=== PATIENT | male | born 1950 | race Caucasian/White ===

== ENCOUNTER → 2017-08-06 | Emergency (ER) | payer MEDICARE, OTHER ==
[~2017-08-06] VITALS: Ht 177.8 cm; Wt 90.7 kg
[~2017-08-06] MED LIST: ALFUZOSIN HCL10 MG PO; AMLODIPINE BESYL5 MG PO; CARVEDILOL6.25 MG PO; LEVETIRACETAM1000 MG PO; LINZESS290 MCG PO; LISINOPRIL20 MG PO; MIRALAX17 GM PO; ONDANSETRON HCL4 MG PO; PROMETHEGAN50 MG PR; READY TO USE E133 ML PR; RENVELA800 MG PO; TORSEMIDE100 MG PO; VERAPAMIL ER120 M1 PO
--- OUTSIDE RECORDS SUMMARY | ~2017-08-06 | XMS | Encounter Summary ---
Demographics + + + | Address | [address] | | | [place] [address] | + + + | Home Phone | | + + + | Preferred Language | Unknown | + + + | Marital Status | Single | + + + | Hinduism Affiliation | 1027 | + + + | Race | Unknown | + + + | Ethnic Group | Unknown | + + + Author + + + | Author | [facility] | + + + | Organization | [facility] | + + + | Address | Unknown | + + + | Phone | Unavailable | + + + Support + + +---------+ + | Name | Relationship | Address | Phone | + + +---------+ + | Bharti Moses | ECON | Unknown | | + + +---------+ + Care Team Providers + +------+ + | Care Life Assurance Representative Name | Role | Phone | + [...] + + | 05/29/ | Documentati | [facility] | Aayush Burr MD | Other (April | | 2017 | on Only | Nephrology [address] | [address] | [facility] | | | [facility] | [address] [place], [place] | Rounding Dialysis | | | | [place], [place] | [address] | Note) | | | | [address] | | | | | | [phone] | | | +--------+ + + + [...]
--- OUTSIDE RECORDS SUMMARY | ~2017-08-06 | XMS | Encounter Summary ---
Demographics + + + | Address | [address] | | | [place] [address] | + + + | Home Phone | | + + + | Preferred Language | Unknown | + + + | Marital Status | Single | + + + | Quaker Affiliation | 1027 | + + + | Race | Unknown | + + + | Ethnic Group | Unknown | + + + Author + + + | Author | [facility] | + + + | Organization | [facility] | + + + | Address | Unknown | + + + | Phone | Unavailable | + + + Support + + +---------+ + | Name | Relationship | Address | Phone | + + +---------+ + | Bharti Moses | ECON | Unknown | | + + +---------+ + Care Team Providers + +------+ + | Care Engineer Gas Pumping Station Name | Role | Phone | + +------+ + | Wilber Mcgee DO | PCP | | + +------+ + Reason for Visit +--------+ + | Reason | Comments | +--------+ + | Other | May 2017-[facility] Provider Rounding Dialysis Note | +--------+ + Encounter Details +--------+ + + + + | Date | Type | Department | Care Team | Description | +--------+ + + + + | 06/28/ | Documentati | [facility] | Aayush Burr MD | Other (May | | 2017 | on Only | Nephrology [address] | [address] | 2018-[facility] Provider | | | | [facility] | [address] [place], [place] | Rounding Dialysis | | | | [place] | [address] | Note) | | | | [address] | | | | | | [phone] | | | +--------+ + + + [...]
--- OUTSIDE RECORDS SUMMARY | ~2017-08-06 | XMS | Encounter Summary ---
Demographics + + + | Address | [address] | | | [place] [address] | + + + | Home Phone | | + + + | Preferred Language | Unknown | + + + | Marital Status | Single | + + + | Yarsanism Affiliation | 1027 | + + + | Race | Unknown | + + + | Ethnic Group | Unknown | + + + Author + + + | Author | [facility] | + + + | Organization | [facility] | + + + | Address | Unknown | + + + | Phone | Unavailable | + + + Support + + +---------+ + | Name | Relationship | Address | Phone | + + +---------+ + | Bharti Moses | ECON | Unknown | | + + +---------+ + Care Team Providers + +------+ + | Care Snow Fence Erector Name | Role | Phone | + [...] + + | 06/28/ | Documentati | [facility] | Aayush Burr MD | Other (May | | 2017 | on Only | Nephrology [address] | [address] | 2018-[facility] Provider | | | | [facility] | [address] [place], [place] | Rounding Dialysis | | | | [place], [place] | [address] | Note) | | | | [address] | | | | | | [phone] | | | +--------+ + + + [...]
--- OUTSIDE RECORDS SUMMARY | ~2017-08-06 | XMS | Clinical Summary ---
Demographics + + + | Address | [address] | | | [place] [address] | + + + | Home Phone | | + + + | Preferred Language | Unknown | + + + | Marital Status | Single | + + + | Adventism Affiliation | NRP | + + + [...] | + + + + + | Bhatri Moses | ECON | [address] | | | | | [place] [address] | | + + + + + Care Team Providers + +------+ + | Care Frog Catcher Name | Role | Phone | + +------+ + | Escobar Cohen MD | PP | | + +------+ + Source Comments SUBHASH is fully live on both [facility] Ambulatory and [facility] InPatient.[facility] Allergies No Known Allergies Current Medications + + +--------+---------+------+------+-------+ | Prescription | Sig. | Disp. | Refills | Star | End | Statu | | | | | | t | Date | s | | | | | | Date | | | + + +--------+---------+------+------+-------+ | acetaminophen 325 | Take 1-2 tablets by | 30 | 0 | 02/1 | | Activ | | mg oral tablet | mouth every six | tablet | | 1/20 | | e | | | hours as needed. | | | 15 | | | + + +--------+---------+------+------+-------+ | levETIRAcetam 750 | Take 1 tablet by | 120 | 5 | 02/ | | Activ | | mg oral tablet | mouth two times | tablet | | 20 | | e | | | daily. | | | 15 | | | + + +--------+---------+------+------+-------+ | alfuzosin SR 10 mg | Take 10 mg by mouth | | | | | Activ | | oral tablet | once daily. Take | | | | | e | | extended release 24 | following a meal at | | | | | | | hr | the same time each | | | | | | | | day. | | | | | | + + +--------+---------+------+------+-------+ | amLODIPine 10 mg | Take 10 mg by mouth | | | | | Activ | | oral tablet | once daily. | | | | | e | + + +--------+---------+------+------+-------+ | mupirocin 2 % | Instill into each | | | | | Activ | | nasal ointment | nostril two times | | | | | e | | | daily. Apply 1/2 | | | | | | | | tube into one | | | | | | | | nostril and the | | | | | | | | other half into the | | | | | | | | other nostril. Use | | | | | | | | for 5 days. | | | | | | + + +--------+---------+------+------+-------+ | bisacodyl | Insert 10 mg | | | | | Activ | | (BISCOLAX) 10 mg | rectally once daily | | | | | e | | rectal suppository | as needed. | | | | | | + + +--------+---------+------+------+-------+ | Calcium Carbonate | Take 3,000 mg by | | | | | Activ | | 600 mg (1,500 mg) | mouth once daily. | | | | | e | | oral tablet | | | | | | | + + +--------+---------+------+------+-------+ | carvedilol 3.125 | Take 3.125 mg by | | | | | Activ | | mg oral tablet | mouth two times | | | | | e | | | daily. Administer | | | | | | | | with food. | | | | | | + + +--------+---------+------+------+-------+ | lisinopril 20 mg | Take 20 mg by mouth | | | | | Activ | | oral tablet | once daily. | | | | | e | + + +--------+---------+------+------+-------+ | sevelamer | Take by mouth three | | | | | Activ | | carbonate (RENVELA) | times daily with | | | | | e | | 800 mg oral tablet | meals. | | | | | | + + +--------+---------+------+------+-------+ | torsemide 100 mg | Take 50 mg by mouth | | | | | Activ | | oral tablet | once daily. | | | | | e | + + +--------+---------+------+------+-------+ | cholecalciferol, | Take 5,000 Units by | | | | | Activ | | Vitamin D3, 1,000 | mouth once daily. | | | | | e | | unit oral tablet | | | | | | | + + +--------+---------+------+------+-------+ | ondansetron 4 mg | Take 4 mg by mouth | | | | | Activ | | oral tablet | every six hours as | | | | | e | | | needed. | | | | | | + + +--------+---------+------+------+-------+ | epoetin niharika | Inject 10,000 Units | | | | | Activ | | (EPOGEN) 10,000 | under the skin | | | | | e | | unit/mL injection | (SUBC) every seven | | | | | | | solution | days. | | | | | | + + +--------+---------+------+------+-------+ Active Problems + + + | Problem | Noted Date | + + + | Meningioma (HCC) | 02/22/2013 | + + + | Gait instability | 02/10/2013 | + + + | Urinary incontinence | 02/10/2013 | + + + | Hydrocephalus | 02/10/2013 | + + + | Alcohol abuse | 02/10/2013 | + + + | History of fever | 02/10/2013 | + + + Social History + +-------+ +--------+------+ | Tobacco Use | Types | Packs/Day | Years | Date | | | | | Used | | + +-------+ +--------+------+ | Never Assessed | | | | | + +-------+ +--------+------+ + + + | Sex Assigned at | Date Recorded | | | | + + + | Not on file | | + + + Last Filed Vital Signs + + + + | Vital Sign | Reading | Time Taken | + + + + | Blood Pressure | 157/93 | 01/21/2015 1:20 PM PDT | + + + + | Pulse | 72 | 01/21/2015 1:20 PM PDT | + + + + | Temperature | 36.8 C (98.3 F) | 01/21/2015 1:20 PM PDT | + + + + | Respiratory Rate | 20 | 06/04/2014 7:24 PM PST | + + + + | Oxygen Saturation | 98% | 01/21/2015 1:20 PM PDT | + + + + | Inhaled Oxygen | - | - | | Concentration | | | + + + + | Weight | 83 kg (183 lb) | 01/21/2015 1:20 PM PDT | + + + + | Height | 167.6 cm (5' 6") | 05/31/2014 2:00 AM PST | + + + + | Body Mass Index | 29.54 | 01/21/2015 1:20 PM PDT | + + + + Plan of Treatment + + + + + | Health Maintenance | Due Date | Last Done | Comments | + + + + + | INFLUENZA VACCINE | | | | | (FLU SHOT) | 8 | | | + + + + + Results Not on filefrom Last 3 Months
--- OUTSIDE RECORDS SUMMARY | ~2017-08-06 | XMS | Encounter Summary ---
Demographics + + + | Address | [address] | | | [place] [address] | + + + | Home Phone | | + + + | Preferred Language | Unknown | + + + | Marital Status | Single | + + + | Yarsani Affiliation | 1027 | + + + | Race | Unknown | + + + | Ethnic Group | Unknown | + + + Author + + + | Author | [facility] | + + + | Organization | [facility] | + + + | Address | Unknown | + + + | Phone | Unavailable | + + + Support + + +---------+ + | Name | Relationship | Address | Phone | + + +---------+ + | Bharti Moses | ECON | Unknown | | + + +---------+ + Care Team Providers + +------+ + | Care Lotus Notes Administrator Name | Role | Phone | + [...] + + | 05/29/ | Documentati | [facility] | Aayush Burr MD | Other (April | | 2017 | on Only | Nephrology [address] | [address] | [facility] | | | [facility] | [address] [place], [place] | Rounding Dialysis | | | | [place], [place] | [address] | Note) | | | | [address] | | | | | | [phone] | | | +--------+ + + + [...]
--- OUTSIDE RECORDS SUMMARY | ~2017-08-06 | XMS | Clinical Summary ---
Demographics + + + | Address | [address] | | | [place] [address] | + + + | Home Phone | | + + + | Preferred Language | Unknown | + + + | Marital Status | Single | + + + | Restorationist Affiliation | NRP | + + + [...] | | | | | [place] [address] | | + + + + + Care Team Providers + +------+ + | Care Irrigation Installation Specialist Name | Role | Phone | + +------+ + | Escobar Cohen MD | PP | | + +------+ + Source Comments SUBHASH is fully live on both [facility] Ambulatory and [facility] InPatient.[facility] Allergies No Known Allergies Current Medications + [...]
--- OUTSIDE RECORDS SUMMARY | ~2017-08-06 | XMS | Clinical Summary ---
Demographics + + + | Address | [address] | | | [place] [address] | + + + | Home Phone | | + + + | Preferred Language | Unknown | + + + | Marital Status | Single | + + + | Advent Affiliation | 1027 | + + + | Race | Unknown | + + + | Ethnic Group | Unknown | + + + Author + + + | Author | [facility] | + + + | Organization | [facility] | + + + | Address | Unknown | + + + | Phone | Unavailable | + + + Support + + +---------+ + | Name | Relationship | Address | Phone | + + +---------+ + | Bharti Moses | ECON | Unknown | | + + +---------+ + Care Team Providers + +------+ + | Care Vp Of Digital Marketing Name | Role | Phone | + [...] 08/1 | | Activ | | (PROCRIT) [id number] | skin every 7 days. | | [...] | | | | Activ | | 02104 units CAPS | mouth daily. | | [...] + + + + + | Vaccine: Zoster (#1) | | | | | | 0 | | | + + + + [...] Right: | COVIDIEN | | 09/07/ | [id number] | | : Qty: 1 on 01/19/2015 by | er | Chest | | | 2020 | [id number] | | Joaquim James MD | | | | | | / | | | | | | | | /[id number] | | | | | | | | [address] | + +--------+--------+ +--------+--------+--------+ Results Not on [...] RE | | | | [place] [address] | | | IP-OP | | | | | + +--------+ +------+-------+ + | MEDICAID | MEDICA | xxxxxxxx | | | [address] | | | ID | | | | [place] | | | [place] | | | | [address] | + +--------+ +------+-------+ + + +--------+ +--------+ + + | Guarantor Name | Accoun | Relation to | Date | Phone | Billing Address | | | t Type | Patient | of | | | | | | | | | | + +--------+ +--------+ + + | MEERA VEGA | Person | Self [birth year] Home: | [address] | | | al/Fam | | 1951 | [phone] | [place] | | | [place] | | | [phone] | + +--------+ +--------+ + +
--- OUTSIDE RECORDS SUMMARY | ~2017-08-06 | XMS | Clinical Summary ---
Demographics + + + | Address | [address] | | | [place] [address] | + + + | Home Phone | | + + + | Preferred Language | Unknown | + + + | Marital Status | Single | + + + | Amish Affiliation | 1027 | + + + | Race | Unknown | + + + | Ethnic Group | Unknown | + + + Author + + + | Author | [facility] | + + + | Organization | [facility] | + + + | Address | Unknown | + + + | Phone | Unavailable | + + + Support + + +---------+ + | Name | Relationship | Address | Phone | + + +---------+ + | Bharti Moses | ECON | Unknown | | + + +---------+ + Care Team Providers + +------+ + | Care Database Software Technician Name | Role | Phone | [...] 08/1 | | Activ | | (PROCRIT) [id number] | skin every 7 days. | | [...] | | | | Activ | | 74427 units CAPS | mouth daily. | | [...] Right: | COVIDIEN | | 09/07/ | [id number] | | : Qty: 1 on 01/19/2015 by | er | Chest | | | 2020 | [id number] | | Joaquim James MD | | | | | | / | | | | | | | | /[id number] | | | | | | | | [address] | + +--------+--------+ +--------+--------+--------+ Results Not on [...] RE | | | | [place] [address] | | | IP-OP | | | | | + +--------+ +------+-------+ + | MEDICAID | MEDICA | xxxxxxxx | | | [address] | | | ID | | | | [place] | | | [place] | | | | [address] | + +--------+ +------+-------+ + + +--------+ +--------+ + + | Guarantor Name | Accoun | Relation to | Date | Phone | Billing Address | | | t Type | Patient | of | | | | | | | | | | + +--------+ +--------+ + + | MEERA VEGA | Person | Self | [birth year] | Home: | [address] | | | al/Fam | | 1951 | [phone] | [place] | | | [place] | | | [phone] | + +--------+ +--------+ + +
--- NOTE | 2017-08-08 17:13 | EKG ---
[facility] [address] [place] [address] Signed Normal sinus rhythm Possible Left atrial enlargement Septal infarct , age undetermined Abnormal ECG No previous ECGs available Confirmed by JASMINE AMEZQUITA MD ([id number]) on 08/08/2017 5:12:52 PM Electronically Signed By: JASMINE AMEZQUITA MD 08/08/17 1713 PATIENT NAME: MEERA VIZCAINO Electrocardiogram DATE OF : 48 PHYSICIAN: JASMINE AMEZQUITA MD REPORT #: [id number] REPORT IS CONFIDENTIAL AND NOT TO BE RELEASED WITHOUT AUTHORIZATION
== END ==
LOC: ED 21:16
PROC: BT40ZZZ Ultrasonography of Bladder (ICD-10-PCS; principal; 2017-08-06)
DX: R41.82 Altered mental status, unspecified (principal); G91.9 Hydrocephalus, unspecified; E87.5 Hyperkalemia; Z99.2 Dependence on renal dialysis; I12.0 Hypertensive chronic kidney disease with stage 5 chronic kidney disease or end stage renal disease; N18.6 End stage renal disease; Z79.899 Other long term (current) drug therapy
CPT/HCPCS: 51798; 70450; 71045; 80053; 84484; 85025; 85610; 85730; 93005; 93010; 96374; 99285; G0480; J2060

== ENCOUNTER 2017-08-26 15:17 | Emergency (ER) | payer MEDICARE, OTHER ==
[~2017-08-26] VITALS: Ht 177.8 cm; Wt 90.7 kg
--- OUTSIDE RECORDS SUMMARY | ~2017-08-26 | XMS | Encounter Summary ---
Demographics + + + | Address | [address] | | | [place] [address] | + + + | Home Phone | | + + + | Preferred Language | Unknown | + + + | Marital Status | Single | + + + | Pentecostalism Affiliation | 1027 | + + + | Race | Unknown | + + + | Ethnic Group | Unknown | + + + Author + + + | Author | [facility] | + + + | Organization | [facility] | + + + | Address | Unknown | + + + | Phone | Unavailable | + + + Support + + +---------+ + | Name | Relationship | Address | Phone | + + +---------+ + | Bharti Moses | ECON | Unknown | | + + +---------+ + Care Team Providers + +------+ + | Care Art Model Name | Role | Phone | + +------+ + | Wilber Dodd DO | PCP | | + +------+ + Reason for Visit +--------+ + | Reason | Comments | +--------+ + | Other | [facility]U [facility] | +--------+ + Encounter Details +--------+ + + + + | Date | Type | Department | Care Team | Description | +--------+ + + + + | 07/25/ | Documentati | [facility] | Warren Matos MD | Other (DR. PABLO | | 2018 | on Only | Hematology and | [address] | [place]ODD ) | | | | Oncology [address] | [place] | | | | | [place] | [address] | | | | | [place] | | | | | | [address] | | | | | | [phone] | | | +--------+ + + + + Social History + +-------+ +--------+------+ | Tobacco Use | Types | Packs/Day | Years | Date | | | | | Used | | + +-------+ +--------+------+ | Never Smoker | | | | | + +-------+ +--------+------+ + + +---------+ + | Alcohol Use | Drinks/We | oz/Week | Comments | | | ek | | | + + +---------+ + | No | 42 Cans | 46.2 | Stop drinking 2 years ago | | | of beer | | | | | 35 Shots | | | | | of | | | | | liquor 0 | | | | | Standard | | | | | drinks | | | | | or | | | | | equivalen | | | | | t | | | + + +---------+ + + + + | Sex Assigned at | Date Recorded | | | | + + + | Not on file | | + + + as of this encounter Plan of Treatment Not on fileas of this encounter Visit Diagnoses Not on filein this encounter"
--- OUTSIDE RECORDS SUMMARY | ~2017-08-26 | XMS | Encounter Summary ---
Demographics + + + | Address | [address] | | | [place] [address] | + + + | Home Phone | | + + + | Preferred Language | Unknown | + + + | Marital Status | Single | + + + | Congregational Affiliation | 1027 | + + + | Race | Unknown | + + + | Ethnic Group | Unknown | + + + Author + + + | Author | [facility] | + + + | Organization | [facility] | + + + | Address | Unknown | + + + | Phone | Unavailable | + + + Support + + +---------+ + | Name | Relationship | Address | Phone | + + +---------+ + | Bharti Moses | ECON | Unknown | | + + +---------+ + Care Team Providers + +------+ + | Care Housekeeping/Laundry Name | Role | Phone | + +------+ + | Wilber Mcgee DO | PCP | | + +------+ + Reason for Visit +--------+ + | Reason | Comments | +--------+ + | Other | April 2017-[facility] Provider Rounding Dialysis Note | +--------+ + Encounter Details +--------+ + + + + | Date | Type | Department | Care Team | Description | +--------+ + + + + | 05/29/ | Documentati | [facility] | Aayush Burr MD | Other (April | | 2017 | on Only | Nephrology [address] | [facility] | | | [facility] | [address] [place], [place] | Rounding Dialysis | | | | [place], [place] | [address] | Note) | | | | [address] | | | | | | [phone] | | | +--------+ + + + [...]
--- OUTSIDE RECORDS SUMMARY | ~2017-08-26 | XMS | Encounter Summary ---
Demographics + + + | Address | [address] | | | [place] [address] | + + + | Home Phone | | + + + | Preferred Language | Unknown | + + + | Marital Status | Single | + + + | Church Affiliation | 1027 | + + + | Race | Unknown | + + + | Ethnic Group | Unknown | + + + Author + + + | Author | [facility] | + + + | Organization | [facility] | + + + | Address | Unknown | + + + | Phone | Unavailable | + + + Support + + +---------+ + | Name | Relationship | Address | Phone | + + +---------+ + | Bharti Moses | ECON | Unknown | | + + +---------+ + Care Team Providers + +------+ + | Care Passport Support Manager Name | Role | Phone | + +------+ + | Wilber Mcgee DO | PCP | | + +------+ + Reason for Visit +--------+ + | Reason | Comments | +--------+ + | Other | July 2017-Mary Jo Hernández Rounding Dialysis Note | +--------+ + Encounter Details +--------+ + + + + | Date | Type | Department | Care Team | Description | +--------+ + + + + | 08/22/ | Documentati | [facility] | Aayush Burr MD | Other (July | | 2017 | on Only | Nephrology [address] | [address] | [facility] [facility] | | | | [place] [facility] | [address] [place], [place] | Rounding Dialysis | | | | [place], [place] | [address] | Note) | | | | [address] | | | | | | [phone] | | | +--------+ + + + [...]
--- OUTSIDE RECORDS SUMMARY | ~2017-08-26 | XMS | Clinical Summary ---
Demographics + + + | Address | [address] | | | [place] [address] | + + + | Home Phone | | + + + | Preferred Language | Unknown | + + + | Marital Status | Single | + + + | Confucianist Affiliation | NRP | + + + | Race | White | + + + | Ethnic Group | Not or | + + + Author + + + | Author | [facility] | + + + | Organization | [facility] | + + + | Address | Unknown | + + + | Phone | Unavailable | + + + Support + + + + + | Name | Relationship | Address | Phone | + + + + + | Bharti Moses | ECON | [address] | | | | | [place] [address] | | + + + + + | Florentin Vega | ECON | Unknown | | + + + + + Care Team Providers + +------+ + | Care Transport Tank Technician Name | Role | Phone | + +------+ + | Wilber Mcgee DO | PP | | + +------+ + Source Comments SUBHASH is fully live on both [facility] Ambulatory and [facility] InPatient.[facility] Allergies No Known Allergies Current Medications + + +---------+---------+------+------+-------+ | Prescription | Sig. | Disp. | Refills | Star | End | Statu | | | | | | t | Date | s | | | | | | Date | | | + + +---------+---------+------+------+-------+ | bisacodyl | Unwrap and insert 10 | | | | | Activ | | (BISCOLAX) 10 mg | mg rectally once | | | | | e | | rectal suppository | daily as needed (2nd | | | | | | | | line for | | | | | | | | constipation). | | | | | | + + +---------+---------+------+------+-------+ | lisinopril 20 mg | Take 20 mg by mouth | | | | | Activ | | oral tablet | once daily. | | | | | e | + + +---------+---------+------+------+-------+ | sevelamer | Take 2,400 mg by | | | | | Activ | | carbonate (RENVELA) | mouth three times | | | | | e | | 800 mg oral tablet | daily with meals. | | | | | | | | Hold if not eating. | | | | | | + + +---------+---------+------+------+-------+ | Cholecalciferol | Take 5,000 Units by | | | | | Activ | | (Vitamin D3) 5,000 | mouth once daily. | | | | | e | | unit oral tablet | | | | | | | + + +---------+---------+------+------+-------+ | levETIRAcetam | Take 1,000 mg by | | | 02/2 | | Activ | | 1,000 mg oral tablet | mouth two times | | | 12/11 | | e | | | daily. | | | 18 | | | + + +---------+---------+------+------+-------+ | carvedilol 6.25 mg | Take 6.25 mg by | | | 03/2 | | Activ | | oral tablet | mouth two times | | | 12/11 | | e | | | daily. Hold for | | | 18 | | | | | pulse < 50 bpm. | | | | | | + + +---------+---------+------+------+-------+ | acetaminophen 325 | Take 650 mg by mouth | | | | | Activ | | mg oral tablet | every four hours as | | | | | e | | | needed for moderate | | | | | | | | pain. | | | | | | + + +---------+---------+------+------+-------+ | sevelamer HCl 800 | Take 800 mg by mouth | | | | | Activ | | mg oral tablet | once daily at | | | | | e | | | bedtime. Give with | | | | | | | | evening snack. Hold | | | | | | | | if not eating. | | | | | | + + +---------+---------+------+------+-------+ | polyethylene | Mix 1 packet and | | | | | Activ | | glycol 17 gram oral | take orally once | | | | | e | | powder in packet | daily as needed (1st | | | | | | | | line for | | | | | | | | constipation). | | | | | | + + +---------+---------+------+------+-------+ | mineral oil (FLEET | Insert 133 mL | | | | | Activ | | MINERAL OIL) rectal | rectally once daily | | | | | e | | enema | as needed (3rd line | | | | | | | | for constipation). | | | | | | + + +---------+---------+------+------+-------+ | senna-docusate | Take 2 tablets by | | | | | Activ | | 8.6-50 mg oral | mouth two times | | | | | e | | tablet | daily. | | | | | | + + +---------+---------+------+------+-------+ | calcium carbonate | Take 2 tablets by | 30 | 1 | 04/2 | | Activ | | 260 mg elemental | mouth once daily. | tablet | | 0/20 | | e | | (648 mg total salt) | | | | 18 | | | | oral tablet | | | | | | | + + +---------+---------+------+------+-------+ | thiamine 100 mg | Take 1 tablet by | 30 | 1 | 04/2 | | Activ | | oral tablet | mouth once daily. | tablet | | 0/20 | | e | | | | | | 18 | | | + + +---------+---------+------+------+-------+ | LINZESS 290 mcg | Take 290 mcg by | 30 | 0 | 04/1 | | Activ | | oral capsule | mouth once daily. | capsule | | 9/20 | | e | | | | | | 18 | | | + + +---------+---------+------+------+-------+ | amLODIPine 10 mg | Take 1 tablet by | 30 | 2 | 07/24 | | Activ | | oral tablet | mouth once daily. | tablet | | | | e | | | | | | 18 | | | + + +---------+---------+------+------+-------+ Active Problems + + + | Problem | Noted Date | + + + | Hypertension | 08/10/2017 | + + + | Epilepsy (HCC) | 08/10/2017 | + + + | MGUS (monoclonal gammopathy of unknown significance) | 08/10/2017 | + + + | Anemia | 08/10/2017 | + + + | Delirium | 08/10/2017 | + + + | Altered mental status | 08/07/2017 | + + + | ESRD (end stage renal disease) (HCC) | 08/07/2017 | + + + | Altered mental status, unspecified altered mental status type | 08/07/2017 | + + + | Meningioma (HCC) | 02/22/2013 | + + + | Gait instability | 02/10/2013 | + + + | Urinary incontinence | 02/10/2013 | + + + | Hydrocephalus | 02/10/2013 | + + + | Alcohol abuse | 02/10/2013 | + + + | History of fever | 02/10/2013 | + + + Resolved Problems + + + + | Problem | Noted | Resolved | | | Date | Date | + + + + | Hypertensive emergency | 08/11/19 | | | | 18 | 8 | + + + + Encounters +--------+ + + + + | Date | Type | Specialty | Care Team | Description | +--------+ + + + + | 08/09/ | Document-Sc | | Unknown | | | 2018 | anned | | | | +--------+ + + + + | 08/09/ | Document-Sc | | Unknown | | | 2018 | anned | | | | +--------+ + + + + | 08/07/ | Hospital | | Tracey Ledesma MD | | | 2018 - | Encounter | | Paulo Trotter, | | | | | | MD Hester, | | | 08/11/ | | | MD Manuela | | | 2017 | | | Leonidas Redd MD | | +--------+ + + + + +---+ + | | Discharge | | | Summaries | | | - Laura, | | | Amirah Ann, | | | - | | | 08/11/2017 | | | 2:09 PM | | | PDT | | | Formatting | | | of this | | | note may be | | | different | | | from the | | | original.Or | | | [facility] | | | & Science | | | [place] | | | Discharge | | | SummaryDisc | | | harging | | | Provider: | | | AMIRAH Ann | | | LAURA, | | | MDDischargi | | | ng | | | Attending | | | Physician: | | | Leonidas | | | Tramaine | | | MDPCP: Wilber | | | Walker, | | | DOAdmission | | | Date: | | | 08/07/2017Di | | | scharge | | | Date: | | | 08/11/17Hosp | | | ital Stay: | | | 4 | | | day(s)Diagn | | | osis:Princi | | | pal | | | Diagnosis:1 | | | . Acute | | | metabolic | | | encephalopa | | | thyAddition | | | al | | | Diagnoses:2 | | | . Right | | | parafalcine | | | | | | meningioma3 | | | . Chronic | | | hydrocephal | | | us4. | | | Seizure | | | disorder5. | | | ESRD6. | | | HTN7. | | | MGUSProcedu | | | res: | | | noneReason | | | for | | | Admission: | | | altered | | | mental | | | statusHospi | | | faizan Course | | | by Problem | | | # Right | | | parafalcine | | | meningioma | | | c/b | | | chronic | | | hydrocephal | | | usPatient | | | presented | | | with | | | altered | | | mental | | | status and | | | vomiting. | | | He had a CT | | | at an | | | outside | | | hospital | | | which was | | | concerning | | | for his | | | known | | | ventriculom | | | egaly and | | | he was sent | | | to [facility] | | | and | | | admitted to | | | | | | neurosurger | | | y service. | | | Repeat | | | brain MRI | | | here showed | | | a stable | | | degree of | | | ventriculom | | | egaly. His | | | blood | | | pressure | | | medications | | | had been | | | held in the | | | setting of | | | vomiting | | | and his BP | | | at OSH was | | | noted to be | | | 234/104, | | | however on | | | arrival was | | | down to | | | 180s/90s. | | | An EEG was | | | obtained on | | | 4/17 which | | | showed | | | slowing of | | | background | | | and | | | triphasic | | | waves | | | suggestive | | | of | | | toxic-metab | | | olic | | | encephalopa | | | thy. | | | Considered | | | multiple | | | potential | | | etiologies | | | for | | | patient's | | | ongoing | | | fluctuating | | | hypoactive | | | delirium, | | | although | | | ultimately | | | no clear | | | precipitant | | | was found | | | and the | | | patient | | | returned to | | | his | | | baseline | | | mental | | | status | | | after 3 | | | days. He | | | had no e/o | | | infection, | | | electrolyte | | | s were wnl | | | with | | | dialysis, | | | MRI was | | | negative | | | for PRES. | | | Thiamine | | | was started | | | | | | empirically | | | given | | | history of | | | heavy EtOH | | | use | | | although | | | patient's | | | facility | | | and life | | | partner | | | indicated | | | he was no | | | longer | | | drinking or | | | using any | | | other | | | substances. | | | Vitamin | | | B12 and TSH | | | were | | | normal. | | | Niacin was | | | pending at | | | time of | | | discharge. | | | - follow | | | up niacin | | | level - | | | continue | | | thiamine po | | | - delirium | | | | | | precautions | | | and | | | avoidance | | | of | | | centrally | | | active | | | medications | | | # Seizure | | | disorderKep | | | pra level | | | initially | | | supratherap | | | eutic at | | | 66, however | | | repeat | | | level was | | | wnl. Home | | | dose was | | | not changed | | | on | | | discharge. | | | - continue | | | Keppra 1 | | | gram BID | | | for seizure | | | | | | prophylaxis | | | # ESRD - | | | on HD MWF# | | | Normocytic | | | anemia, | | | chronicPati | | | ent was | | | dialyzed | | | according | | | to his | | | usual | | | schedule. | | | Nephrology | | | did not | | | feel that | | | uremia was | | | a | | | contributor | | | to his | | | mental | | | status. | | | Anemia was | | | at baseline | | | and above | | | goal for | | | ESRD. - | | | continue HD | | | MWF at | | | [facility] with | | | Dr. Looney | | | Akhum - | | | continue | | | sevelamer | | | # HTN | | | Suspect his | | | initial | | | high BPs | | | were | | | related to | | | missing | | | doses of | | | his | | | medications | | | . Stopped | | | torsemide | | | given that | | | patient is | | | anuric. | | | Stopped | | | verapamil | | | as | | | patient's | | | BPs were | | | well | | | controlled | | | (mostly | | | <140/80) | | | without it. | | | - | | | continued | | | amlodipine | | | 10 mg daily | | | - | | | continued | | | carvedilol | | | 3.125 mg | | | BID - | | | continued | | | lisinopril | | | 20 mg | | | daily # | | | MGUSFollows | | | with | | | hematology, | | | last seen | | | 08/01/16 by | | | Dr. Martinez. | | | Recommend | | | follow-up | | | with Ana | | | Hematology | | | for | | | continued | | | observation | | | . Pertinen | | | t | | | Findings:La | | | bs: Lab | | | Results | | | Component | | | Value Date | | | WBC 6.09 | | | 08/10/2017 | | | HB 10.1 | | | 08/10/2017 | | | HCT 31.0 | | | 08/10/2017 | | | PLT 164 | | | 08/10/2017 | | | MCV 93.7 | | | 08/10/2017 | | | RDW 46.1 | | | 08/10/2017 | | | Recent Labs | | | | | | 08/08/17 | | | 1002 | | | 08/09/17 | | | 0700 | | | 08/10/17 | | | 0706 GLU | | | 92 106* | | | 86 BUN 33* | | | 53* 30* | | | CR 7.50* | | | 10.40* | | | 7.51* ALB | | | 3.3* 2.9* | | | 2.9* CA | | | 9.0 8.7 | | | 9.1 PO4 | | | 4.5 -- | | | 4.3 NA 137 | | | 136 137 | | | CL 99 99 | | | 99 BICARB | | | 30 30 | | | 34* | | | Imaging:MRI | | | brain | | | 08/08/17: | | | | | | IMPRESSION: | | | 1. | | | Unchanged | | | marked | | | enlargement | | | of the | | | lateral and | | | third | | | ventricles | | | compared to | | | head CT of | | | 08/09/17 | | | and brain | | | MRI of | | | 05/31/14 with | | | suggestion | | | of | | | underlying | | | aqueductal | | | stenosis; | | | however, | | | there | | | appears to | | | be a flow | | | void within | | | the | | | cerebral | | | aqueduct | | | suggesting | | | that the | | | aqueduct is | | | not | | | entirely | | | occluded.2. | | | Grossly | | | unchanged | | | appearance | | | of the | | | right | | | parafalcine | | | present | | | meningioma; | | | lack of | | | intravenous | | | contrast | | | and the | | | current | | | exam limits | | | | | | comparison. | | | CXR | | | 18: | | | IMPRESSION: | | | Single | | | frontal | | | view of the | | | abdomen | | | obtained. | | | The tip of | | | the feeding | | | tube is in | | | the | | | gastric | | | body, | | | pointing | | | toward the | | | gastric | | | outlet. | | | Other | | | Studies:Out | | | standing or | | | Pending | | | Labs/Studie | | | s: | | | Consultants | | | | | | (service/at | | | tending | | | name): | | | Discharge | | | Medications | | | : | | | Medication | | | List START | | | taking | | | these | | | medications | | | calcium | | | carbonate | | | 260 mg | | | elemental | | | (648 mg | | | total salt) | | | TabTake 2 | | | tablets by | | | mouth once | | | daily. | | | thiamine | | | 100 mg | | | TabTake 1 | | | tablet by | | | mouth once | | | daily. | | | CHANGE how | | | you take | | | these | | | medications | | | | | | amLODIPine | | | 10 mg | | | TabCommonly | | | known as: | | | | | | NORVASCTake | | | 1 tablet | | | by mouth | | | once | | | daily.What | | | changed: | | | Another | | | medication | | | with the | | | same name | | | was | | | removed. | | | Continue | | | taking this | | | | | | medication, | | | and follow | | | the | | | directions | | | you see | | | here. | | | LINZESS 290 | | | mcg | | | CapGeneric | | | drug: | | | linaclotide | | | Take 290 | | | mcg by | | | mouth once | | | daily.What | | | changed: | | | how much to | | | take | | | CONTINUE | | | taking | | | these | | | medications | | | | | | acetaminoph | | | en 325 mg | | | TabCommonly | | | known as: | | | | | | TYLENOLTake | | | 650 mg by | | | mouth every | | | four hours | | | as needed | | | for | | | moderate | | | pain. | | | BISCOLAX 10 | | | mg | | | SuppGeneric | | | drug: | | | bisacodylUn | | | wrap and | | | insert 10 | | | mg rectally | | | once daily | | | as needed | | | (2nd line | | | for | | | constipatio | | | n). | | | carvedilol | | | 6.25 mg | | | TabCommonly | | | known as: | | | COREGTake | | | 6.25 mg by | | | mouth two | | | times | | | daily. Hold | | | for pulse | | | < 50 bpm. | | | Cholecalcif | | | mary | | | (Vitamin | | | D3) 5,000 | | | unit | | | TabTake | | | 5,000 Units | | | by mouth | | | once daily. | | | FLEET | | | MINERAL OIL | | | | | | EnemGeneric | | | drug: | | | mineral | | | oilInsert | | | 133 mL | | | rectally | | | once daily | | | as needed | | | (3rd line | | | for | | | constipatio | | | n). | | | levETIRAcet | | | am 1,000 mg | | | | | | TabCommonly | | | known as: | | | KEPPRATake | | | 1,000 mg | | | by mouth | | | two times | | | daily. | | | lisinopril | | | 20 mg | | | TabCommonly | | | known as: | | | | | | PRINIVILTak | | | e 20 mg by | | | mouth once | | | daily. | | | polyethylen | | | e glycol 17 | | | gram | | | PwpkCommonl | | | y known as: | | | | | | MIRALAXMix | | | 1 packet | | | and take | | | orally once | | | daily as | | | needed (1st | | | line for | | | constipatio | | | n). RENVELA | | | 800 mg | | | TabGeneric | | | drug: | | | sevelamer | | | carbonateTa | | | ke 2,400 mg | | | by mouth | | | three times | | | daily with | | | meals. | | | Hold if not | | | eating. | | | senna-docus | | | ate 8.6-50 | | | mg | | | TabCommonly | | | known as: | | | SENOKOT | | | STake 2 | | | tablets by | | | mouth two | | | times | | | daily. | | | sevelamer | | | HCl 800 mg | | | TabCommonly | | | known as: | | | | | | RENAGELTake | | | 800 mg by | | | mouth once | | | daily at | | | bedtime. | | | Give with | | | evening | | | snack. Hold | | | if not | | | eating. | | | STOP taking | | | these | | | medications | | | alfuzosin | | | SR 10 mg | | | [id number] | | | y known as: | | | UROXATRAL | | | | | | ondansetron | | | 4 mg | | | TabCommonly | | | known as: | | | ZOFRAN | | | promethazin | | | e 50 mg | | | SuppCommonl | | | y known as: | | | PHENERGAN | | | torsemide | | | 100 mg | | | TabCommonly | | | known as: | | | DEMADEX | | | verapamil | | | SR 12 hr | | | 120 mg | | | TberCommonl | | | y known as: | | | CALAN | | | SR,ISOPTIN | | | SR | | | Rationale | | | for | | | Medication | | | Changes: - | | | thiamine | | | started for | | | empiric | | | treatment | | | of B1 | | | deficiency | | | - unable to | | | confirm | | | that | | | patient was | | | taking | | | verapamil | | | and given | | | unknown | | | indication, | | | this was | | | held - | | | promethazin | | | e and | | | ondansetron | | | stopped to | | | reduce | | | centrally | | | acting meds | | | - | | | alfuzosin | | | and | | | torsemide | | | stopped as | | | patient is | | | anuricAller | | | gies: No | | | Known | | | AllergiesCo | | | de Status: | | | Do Not | | | Resuscitate | | | /Do Not | | | IntubatePOL | | | ST | | | completed: | | | noAdditiona | | | l | | | Instruction | | | s:Condition | | | on | | | Discharge | | | Stable | | | Discharge | | | Follow Up - | | | Facility | | | MD to | | | follow | | | Facility MD | | | to follow | | | patient. | | | Code Status | | | for | | | Facility | | | Status: | | | Treatment | | | Limits per | | | POLST | | | Condition | | | on | | | Discharge | | | Fair Vital | | | Signs Per | | | policy Diet | | | Renal | | | Renal Diet: | | | Sodium 2 | | | gm, | | | Potassium 2 | | | gm, Low | | | Phosphorus- | | | You must | | | follow a | | | special | | | diet | | | because of | | | your kidney | | | condition. | | | This | | | means that | | | you must | | | restrict | | | your intake | | | of foods | | | high in | | | potassium, | | | sodium and | | | phosphorus. | | | You may | | | also need | | | to limit | | | your intake | | | of fluids. | | | Your | | | healthcare | | | provider | | | will | | | provide you | | | with some | | | guidelines | | | to follow. | | | We | | | recommend | | | regular | | | food | | | texture and | | | thin | | | liquids.Act | | | ivity No | | | activity | | | restriction | | | s Activity | | | No activity | | | | | | restriction | | | s. Continue | | | PT, OT as | | | tolerated | | | Who To Call | | | For | | | Problems | | | HOW TO | | | REACH YOUR | | | MEDICINE | | | TEAM WITH | | | QUESTIONS, | | | CONCERNS, | | | OR NEW | | | SYMPTOMS: | | | Thank you | | | for | | | entrusting | | | your care | | | to [facility] | | | Internal | | | Medicine. | | | If you have | | | any | | | problems or | | | concerns | | | before you | | | are able to | | | follow up | | | with your | | | Primary | | | Care | | | Provider, | | | please call | | | [phone] | | | [phone] | | | and ask the | | | dryer operator | | | to page the | | | attending | | | physician, | | | Leonidas | | | Tramaine, | | | MD, who | | | was caring | | | for you at | | | discharge. | | | If that | | | physician | | | is not | | | available, | | | ask the | | | dryer operator to | | | page the | | | physician | | | fundraising consultant for | | | the | | | Medical | | | Teaching | | | Service.Dis | | | charge | | | Destination | | | - | | | Selection | | | Complete | | | Service | | | Request | | | Status | | | Selected | | | Specialties | | | Address | | | Phone | | | Number Fax | | | Number | | | [facility] | | | [facility] | | | Terrace | | | Selected | | | Intermediat | | | e Care | | | Facility | | | [address], | | | [place] | | | [place] [address] | | | [phone] | | | [phone] | | | [phone] | | | 9 Home | | | Care | | | Medical | | | No service | | | has been | | | selected | | | for the | | | patient. | | | Social Care | | | Services | | | No service | | | has been | | | selected | | | for the | | | patient. | | | Follow | | | Up:Future | | | Appointment | | | s | | | Department | | | Dept Phone | | | Center | | | 08/07/2017 | | | 3:01 AM | | | [facility] | | | [phone] | | | [phone] | | | Contact | | | information | | | for other | | | follow-up | | | providers | | | WILBER | | | WALKER, DO | | | In 1 week. | | | Specialty: | | | Family | | | [facility] | | | tact | | | information | | | [address] | | [address] | | | [address] | | | [place] | | | [phone] | | [phone] | | | Contact | | | information | | | for | | | after-disch | | | arge care | | | Discharge | | | Destination | | | [facility] | | | | | | [facility] | | | Terrace . | | | Specialty: | | | | | | Intermediat | | | e Care | | | [facility] | | | tact | | | information | | | [address] | | [address] | | | on [place] | | | [phone] | | [phone] | | | Discharge | | | Physical | | | Exam:BP | | | Readings | | | from Last 1 | | | | | | Encounters: | | | 18 | | | 140/62 | | | Pulse | | | Readings | | | from Last 1 | | | | | | Encounters: | | | 08/11/17 | | | 68 Resp | | | Readings | | | from Last 1 | | | | | | Encounters: | | | 08/11/17 | | | 16 Wt | | | Readings | | | from Last 1 | | | | | | Encounters: | | | 08/10/17 | | | 82.1 kg | | | (181 lb) | | | Temp | | | Readings | | | from Last 1 | | | | | | Encounters: | | | 08/11/17 | | | 36.9 C | | | (98.4 F) | | | Body mass | | | index is | | | 29.23 | | | kg/m .Gene | | | ral: | | | pleasant, | | | alert, | | | oriented | | | d9Aapzd: | | | JVP at 10 | | | cm, | | | RRRLungs: | | | CTABAbd: | | | soft, | | | non-distend | | | ed, | | | non-tenderN | | | euro: CN | | | II-XII | | | intact. | | | PERRL, + | | | BTT, gaze | | | conjugate. | | | Strength | | | equal in | | | upper and | | | lower | | | extremities | | | . High | | | amplitude | | | low | | | frequency | | | action | | | tremor in | | | arms | | | bilaterally | | | when moves | | | | | | antigravity | | | . 2+ upper | | | extremities | | | , 3+ LE and | | | symetric, | | | sustained | | | ankle | | | clonusANDRE | | | W B | | | MD LAURA | +---+ + +--------+ +---+---+---+ | 08/07/ | Procedure | | | | | 2017 | Pass | | | | +--------+ +---+---+---+ from Last 3 Months Immunizations + + + + | Name | Dates Previously Given | Next Due | + + + + | Influenza-high dose, | 08/11/2017 | | | pfree | | | + + + + Social History + +-------+ +--------+------+ | Tobacco Use | Types | Packs/Day | Years | Date | | | | | Used | | + +-------+ +--------+------+ | Unknown If Ever | | | | | | Smoked | | | | | + +-------+ +--------+------+ + + +---------+ + | Alcohol Use | Drinks/We | oz/Week | Comments | | | ek | | | + + +---------+ + | No | | | | + + +---------+ + + + + | Sex Assigned at | Date Recorded | | | | + + + | Not on file | | + + + Last Filed Vital Signs + + + + | Vital Sign | Reading | Time Taken | + + + + | Blood Pressure | 140/62 | 08/11/2017 3:10 PM PDT | + + + + | Pulse | 68 | 08/11/2017 3:10 PM PDT | + + + + | Temperature | 36.9 C (98.4 F) | 08/11/2017 2:30 PM PDT | + + + + | Respiratory Rate | 16 | 08/11/2017 3:10 PM PDT | + + + + | Oxygen Saturation | 99% | 08/11/2017 3:10 PM PDT | + + + + | Inhaled Oxygen | - | - | | Concentration | | | + + + + | Weight | 82.1 kg (181 lb) | 08/10/2017 5:20 PM PDT | + + + + | Height | 167.6 cm (5' 5.98") | 08/10/2017 5:20 PM PDT | + + + + | Body Mass Index | 29.23 | 08/10/2017 5:20 PM PDT | + + + + Plan of Treatment + + + + + | Health Maintenance | Due Date | Last Done | Comments | + + + + + | INFLUENZA VACCINE | | 08/11/2017 | | | (FLU SHOT) | 8 | | | + + + + + Procedures + +--------+ + + + | Procedure Name | Priori | Date/Time | Associated Diagnosis | Comments | | | ty | | | | + +--------+ + + + | HEMODIALYSIS | Routin | 08/10/2017 | | | | | e | 7:51 PM | | | | | | PDT | | | + +--------+ + + + | HEMODIALYSIS | Routin | 08/08/2017 | | | | | e | 2:54 PM | | | | | | PDT | | | + +--------+ + + + | EEG CONTINUOUS, | Routin | 08/08/2017 | | Results for this | | ADULT | e | 10:26 AM | | procedure are in the | | | | PDT | | results section. | + +--------+ + + + | EEG ROUTINE | Routin | 08/07/2017 | | Results for this | | | e | 12:49 PM | | procedure are in the | | | | PDT | | results section. | + +--------+ + + + | HEMODIALYSIS | Routin | 08/07/2017 | | | | | e | 10:34 AM | | | | | | PDT | | | + +--------+ + + + from Last 3 Months Results CBC (HEMOGRAM) ONLY (08/10/2017 7:06 AM) + + + + | Component | Value | Ref Range | + + + + | WHITE CELL COUNT | 6.09 | 3.50 - 10.80 K/cu mm | + + + + | RED CELL COUNT | 3.31 (L) | 4.50 - 6.00 M/cu mm | + + + + | HEMOGLOBIN | 10.1 (L) | 13.5 - 17.5 g/dL | + + + + | HEMATOCRIT | 31.0 (L) | 41.0 - 53.0 % | + + + + | MCV | 93.7 | 80.0 - 96.0 fL | + + + + | MCHC | 32.6 | 33.0 - 35.5 g/dL | + + + + | RDW SD | 46.1 | 35.1 - 46.3 fL | + + + + | PLATELET COUNT | 164 | 150 - 400 K/cu mm | + + + + | MPV | 9.0 (L) | 9.7 - 12.3 fL | + + + + | NRBC% | 0.0 | 0.0 - 0.3 % | + + + + | NRBC# | 0.00 | 0.00 - 0.02 K/cu mm | + + + + + + + | Specimen | Performing Laboratory | + + + | Blood | [facility], [facility] [address] [place] [address] | | | [place] [address] | + + + LEVETIRACETAM (KEPPRA), SERUM (08/10/2017 7:06 AM)Only the most recent of 2 results within the time period is included. + +-------+ + | Component | Value | Ref Range | + +-------+ + | LEVETIRACETAM | 40.3 | 12.0 - 46.0 mcg/mL | | (KEPPRA) | | | + +-------+ + + + + | Specimen | Performing Laboratory | + + + | Blood | [address] | | | [address] | + + + RENAL FUNCTION SET (NA,K,CL,CO2,BUN,CREAT,GLUC,CA,PHOS,ALB ) (08/10/2017 7:06 AM)Only the most recent of 2 results within the time period is included. + + + + | Component | Value | Ref Range | + + + + | GLUCOSE, PLASMA | 86 | 70 - 99 mg/dL | | (LAB) | | | + + + + | BUN, PLASMA (LAB) | 30 (H) | 6 - 20 mg/dL | + + + + | CREATININE PLASMA | 7.51 (H) | 0.70 - 1.30 mg/dL | | (LAB) | | | + + + + | EGFR - | 9 (L) | >60 mL/min | | [facility] | | | + + + + | EGFR NON | 7 (L) | >60 mL/min | | -BELIZEAN | | | + + + + | SODIUM, PLASMA (LAB) | 137 | 136 - 145 mmol/L | + + + + | POTASSIUM, PLASMA | 4.6 | 3.4 - 5.0 mmol/L | | (LAB) | | | + + + + | CHLORIDE, PLASMA | 99 | 97 - 108 mmol/L | | (LAB) | | | + + + + | TOTAL CO2, PLASMA | 34 (H) | 21 - 32 mmol/L | | (LAB) | | | + + + + | CALCIUM, PLASMA | 9.1 | 8.6 - 10.2 mg/dL | | (LAB) | | | + + + + | CALCIUM(ALB | 10.0 | 8.6 - 10.2 mg/dL | | CORRECTED) | | | + + + + | ALBUMIN, PLASMA | 2.9 (L) | 3.5 - 4.7 g/dL | | (LAB) | | | + + + + | PHOSPHORUS, PLASMA | 4.3 | 2.4 - 4.7 mg/dL | | (LAB) | | | + + + + | POTASSIUM CMNT | No Hemo | | + + + + | ANION GAP | 4 | 4 - 11 mmol/L | + + + + | ANION GAP(ALB | 6 | 4 - 11 mmol/L | | CORRECTED) | | | + + + + + + + | Specimen | Performing Laboratory | + + + | Blood | [facility], [facility] [address] | | | [place] [address] | + + + + + | Narrative | + + | Adult glucose reference range change effective 7-17. GFR is estimated using the | | MDRD equation recommended by the National Kidney Disease Education Program. | | Estimated GFR Interpretive Information: <60 mL/min/1.73 sq | | m Chronic Kidney Disease <15 mL/min/1.73 sq | | m Kidney Failure Estimated GFR greater that 60 mL/min/1.73 | | sq m is of limited clinical value. The MDRD equation is not valid in the following | | situations: - Patients under 18 years of age - Severe malnutrition or obesity - | | Vegetarian diet - Rapidly changing kidney function | + + CBC ONLY (08/10/2017 7:06 AM) + + + | Specimen | Performing Laboratory | + + + | Blood | | + + + + + | Narrative | + + | The following orders were created for panel order CBC ONLY. | | Procedure | | Abnormality Status | | --------- | | ------ CBC (HEMOGRAM) | | ONLY[[id number]] Abnormal Final | | result Please view results for these tests on the | | individual orders. | + + TSH (08/10/2017 7:06 AM) + +-------+ + | Component | Value | Ref Range | + +-------+ + | TSH | 1.35 | 0.46 - 5.56 mIU/L | + +-------+ + + + + | Specimen | Performing Laboratory | + + + | Blood | [facility], [facility] [address] | | | [place] [address] | + + + + + | Narrative | + + | TSH reference ranges are influenced by a variety of environmental influences, age, | | gender and ethnicity. The supplied reference limits are based on published values | | utilizing a similar TSH assay, and should be interpreted with caution. | + + CULTURE, BLOOD BACTI & YEAST [facility] (08/09/2017 3:41 PM)Only the most recent of 2 results wi thin the time period is included. + + + + | Component | Value | Ref Range | + + + + | CULTURE RESULT | Final Report:No Bacteria or Yeast isolated | | | | at 5 days. | | + + + + + + + | Specimen | Performing Laboratory | + + + | Blood - Antecubital | [facility], [facility] [address] [address] | | - left | [place], [place] [address] | + + + LAB OTHER (08/09/2017 3:41 PM) + + -----+ + | Component | Value | Ref Range | + + -----+ + | MISC REF TEST NAME | Niacin, Blood | | + + -----+ + | MISC REF TEST RESULT | 5.44 ug/mL | | + + -----+ + | NORMAL RANGE | Adult Reference Range: 0.50 - 8.45 ug/mL | | + + -----+ + | REFERRAL LAB NAME | Test performed by [facility] [address] | | | | [place], [place] | | | | [address] | | | | [email or web address] | | | | [employer] | | | | | | | | | | | | | | | | | | | | | | + + -----+ + + + + | Specimen | Performing Laboratory | + + + | Blood | [facility] | + + + + + | Narrative | + + | See scanned report for Technical Results and further Interpretation and Comments. | | | | | | | + + CULTURE, BLOOD BACTI & YEAST (08/09/2017 3:41 PM)Only the most recent of 2 results within the time period is included. + + + | Specimen | Performing Laboratory | + + + | Blood | | + + + + + | Narrative | + + | The following orders were created for panel order CULTURE, BLOOD BACTI & YEAST. | | Procedure | | Abnormality Status | | --------- | | ------ CULTURE, BLOOD | | BACTI & Y...[[id number]] Final | | result Please view results for these tests on the | | individual orders. | + + VITAMIN B-12 (08/09/2017 3:40 PM) + + + + | Component | Value | Ref Range | + + + + | VITAMIN B12 | 1,754 (H) | 193 - 986 pg/mL | + + + + | COMMENT (HEMO) | 1 | | + + + + | COMMENT (ICTERUS) | 1 | | + + + + | COMMENT (LIPEMIA) | 1 | | + + + + + + + | Specimen | Performing Laboratory | + + + | Blood | [facility], [facility] [address] [facility] | | | [place] [address] | + + + COMPLETE METABOLIC SET (NA,K,CL,CO2,BUN,CREAT,GLUC,CA,AST,ALT,BILI TOTAL,ALK PHOS,ALB,PROT TOTAL) (08/09/2017 7:00 AM)Only the most recent of 2 results within the time period is incl uded. + + + + | Component | Value | Ref Range | + + + + | GLUCOSE, PLASMA | 106 (H) | 70 - 99 mg/dL | | (LAB) | | | + + + + | BUN, PLASMA (LAB) | 53 (H) | 6 - 20 mg/dL | + + + + | CREATININE PLASMA | 10.40 (H) | 0.70 - 1.30 mg/dL | | (LAB) | | | + + + + | EGFR - | 6 (L) | >60 mL/min | | [facility] | | | + + + + | EGFR NON | 5 (L) | >60 mL/min | | -BELIZEAN | | | + + + + | SODIUM, PLASMA (LAB) | 136 | 136 - 145 mmol/L | + + + + | POTASSIUM, PLASMA | 4.5 | 3.4 - 5.0 mmol/L | | (LAB) | | | + + + + | CHLORIDE, PLASMA | 99 | 97 - 108 mmol/L | | (LAB) | | | + + + + | TOTAL CO2, PLASMA | 30 | 21 - 32 mmol/L | | (LAB) | | | + + + + | CALCIUM, PLASMA | 8.7 | 8.6 - 10.2 mg/dL | | (LAB) | | | + + + + | CALCIUM(ALB | 9.6 | 8.6 - 10.2 mg/dL | | CORRECTED) | | | + + + + | BILIRUBIN TOTAL | 0.5 | 0.3 - 1.2 mg/dL | + + + + | TOTAL PROTEIN, | 6.4 | 6.4 - 8.2 g/dL | | PLASMA (LAB) | | | + + + + | ALBUMIN, PLASMA | 2.9 (L) | 3.5 - 4.7 g/dL | | (LAB) | | | + + + + | ALK PHOS | 80 | 56 - 119 U/L | + + + + | AST(SGOT) | 14 | <=41 U/L | + + + + | ALT (SGPT) | 17 | <=60 U/L | + + + + | ANION GAP | 7 | 4 - 11 mmol/L | + + + + | ANION GAP(ALB | 9 | 4 - 11 mmol/L | | CORRECTED) | | | + + + + | POTASSIUM CMNT | No Hemo | | + + + + | BILI T CMNT | No Hemo | | + + + + | AST CMNT | No Hemo | | + + + + + + + | Specimen | Performing Laboratory | + + + | Blood | [facility], [address] [address] [place] [address] | | | [place] [address] | + + + + + | Narrative | + + | Adult glucose reference range change effective 7-17. GFR is estimated using the | | MDRD equation recommended by the National Kidney Disease Education Program. | | Estimated GFR Interpretive Information: <60 mL/min/1.73 sq | | m Chronic Kidney Disease <15 mL/min/1.73 sq | | m Kidney Failure Estimated GFR greater that 60 mL/min/1.73 | | sq m is of limited clinical value. The MDRD equation is not valid in the following | | situations: - Patients under 18 years of age - Severe malnutrition or obesity - | | Vegetarian diet - Rapidly changing kidney function | + + MAGNESIUM, PLASMA (08/09/2017 7:00 AM) + +-------+ + | Component | Value | Ref Range | + +-------+ + | MAGNESIUM,PLASMA | 2.4 | 1.6 - 2.6 mg/dL | + +-------+ + + + + | Specimen | Performing Laboratory | + + + | Blood | [facility], [address] [address] | | | [place] [address] | + + + + + | Narrative | + + | Reference range change effective 12/06/16. | + + EEG CONTINUOUS, ADULT (08/08/2017 10:26 AM) + + | Narrative | + + | Patient Name: Andry Vega Date of : 1950 Medical Record | | Number: [id number] Date of Test: 08/08/2017 Place of Service: [facility] [phone] | | [phone] [facility] Department: EEG [facility] - [phone] LONG-TERM VIDEO EEG Start | | Date/Time: 08/07/2017 @ 11:57 End Date/Time: 08/07/2017 @ 15:41 Reason for | | Test: Evaluate for seizures and epileptiform activity. 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 Medications: Current | | Facility-Administered Medications: acetaminophen (TYLENOL) tablet 325-650 mg, 325-650 | | mg, feeding tube, Q6H PRN amLODIPine (NORVASC) tablet 10 mg, 10 mg, feeding tube, | | DAILY calcium carbonate suspension 500 mg elemental, 1,250 mg total salt, feeding tube, | | DAILY carvedilol (COREG) tablet 3.125 mg, 3.125 mg, feeding tube, BID W/MEALS | | cholecalciferol (Vitamin D3) (VITAMIN D-3) tablet 5,000 Units, 5,000 Units, feeding | | tube, DAILY levETIRAcetam (KEPPRA) liquid 1,000 mg, 1,000 mg, feeding tube, BID | | lisinopril (PRINIVIL) tablet 20 mg, 20 mg, feeding tube, DAILY sevelamer HCl 50 mg/mL | | suspension (compound) 800 mg, 800 mg, feeding tube, TID W/MEALS torsemide (DEMADEX) | | tablet 50 mg, 50 mg, feeding tube, DAILY Methods: This study was a continuous EEG | | with the duration above. The recording was performed with routine electrodes applied | | according to the 10-20 electrode placement system. Video, EKG, and EOG monitoring were | | utilized. The recording was obtained on a digital system. EEG computer review was | | utilized. Automated digital spike and seizure detection analysis was used, along with | | patient-activated alarms and nursing observations. EEG Description: Background: | | The record was obtained in the encephalopathic state. No sedation was used. The | | background is continuous and symmetric; predominately comprised of a mixture of low | | voltage polymorphic delta/theta activity with frequent long runs of high voltage, | | frontally predominate, 1.0 to 1.5 hz generalized periodic discharges. These generalized | | discharges often have a triphasic morphology and do not appear to have any evolution in | | frequency or morphology. No posterior dominant rhythm seen and normal anterior to | | posterior gradient is absent. No normal sleep transitions were visualized. EEG does | | appear to reactive to external stimuli Interictal Findings: Abnormal slow wave | | activity: Moderate continuous background slowing as noted above. Epileptiform | | activity: There are frequent biocciptial (left > right) sharp wave discharges with | | maximum negativity at O1 > O2 >> T5. Occasionally, these discharges will form runs of | | 1.0 to 2.0 hz lasting for up to 6 seconds in duration. Ictal Activity: No seizures | | were observed. Clinical Events: No pushbutton events documented. Other variants: | | None. Extra leads: Single EKG lead showed a normal sinus rhythm. IMPRESSION | | This lobsterman EEG is abnormal due to: 1) Frequent biocciptial (left > right) | | sharp wave discharges with maximum negativity at O1 > O2 >> T5. 2) 1.0 to 1.5 | | generalized periodic discharges with triphasic morphology 3) Moderate generalized | | slowing, continuous. Focal epileptiform activity is suggestive of underlying | | cortical hyperexcitability with propensity focal seizure to arise from that region. | | Generalized slowing to this degree correlates with moderate encephalopathy that is | | nonspecific in etiology. Generalized period discharges are usually an indicator of | | metabolic encephalopathy in the setting of critical illness. Triphasic wave morphology | | is also often seen in patients with metabolic encephalopathy, particularly those | | patients hepatic or renal failure. No seizures captured. Continuous EEG has been | | discontinued. Electronically signed on 08/08/2017 at 10:13 AM BERNABE JACKSON DO. | | NEUROLOGY ATTENDING ATTESTATION I independently reviewed the EEG record, edited the | | report as necessary, and agree with the fellow's interpretation as documented. Date | | Signed: 08/08/2017 Tanika Isbell MD Traffic Supervisor, Neurology/Epilepsy | | Billing/Coding: | | Provider: Tanika Isbell MD Date: 08/07/17 Suggested Modifier: GC - Resident Present | | Suggested CPT: 63337 - EEG Extended (1 - 6 hours) Suggested Dx: G93.49 Other | | encephalopathy | + + MRI BRAIN WO CONTRAST (08/07/2017 7:37 PM) + + + | Specimen | Performing Laboratory | + + + | | [facility] | + + + + + | Narrative | + + | EXAM: MRI brain without contrast HISTORY: Altered mental status. Hydrocephalus. | | COMPARISON: Outside head CT 08/06/17. Brain MRI 05/31/14. TECHNIQUE: Multiplanar | | multi-sequence MRI of the brain without contrast. FINDINGS: Brain: Again noted | | is marked enlargement of the lateral and third ventricles with subarachnoid space | | effacement and extensive associated cerebral atrophy. The degree of cardiomegaly appears | | unchanged compared to 2015 MRI and compared to head CT of 08/04/17. Current ventricular | | T2/flair hyperintensity appears unchanged in extent compared to 2015. Right parafalcine | | frontal meningioma is suboptimally evaluated on this noncontrast brain MRI though | | appears grossly similar on T2-weighted images as compared to 2015 MRI. Sagittal | | high-resolution images suggest a degree of stenosis at the proximal cerebral aqueduct. | | The Soft tissues and marrow: Unremarkable Face and orbits: Visualized portions are | | unremarkable IMPRESSION: 1. Unchanged marked enlargement of the lateral and | | third ventricles compared to head CT of 08/09/17 and brain MRI of 05/31/14 with suggestion | | of underlying aqueductal stenosis; however, there appears to be a flow void within the | | cerebral aqueduct suggesting that the aqueduct is not entirely occluded. 2. Grossly | | unchanged appearance of the right parafalcine present meningioma; lack of intravenous | | contrast and the current exam limits comparison. I have personally reviewed the | | images and, if necessary, edited the report. I agree with the report as now | | presented. | + + + + | Procedure Note | + + | Service Account, Radiant Res In Interface - 08/07/2017 8:07 PM PDT EXAM: MRI brain | | without contrastHISTORY: Altered mental status. Hydrocephalus.COMPARISON: Outside head | | CT 08/06/17. Brain MRI 05/31/14. TECHNIQUE: Multiplanar multi-sequence MRI of the brain | | without contrast.FINDINGS:Brain: Again noted is marked enlargement of the lateral and | | third ventricles with subarachnoid space effacement and extensive associated cerebral | | atrophy. The degree of cardiomegaly appears unchanged compared to 2015 MRI and compared | | to head CT of 08/04/17. Current ventricular T2/flair hyperintensity appears unchanged in | | extent compared to 2015. Right parafalcine frontal meningioma is suboptimally evaluated | | on this noncontrast brain MRI though appears grossly similar on T2-weighted images as | | compared to 2015 MRI. Sagittal high-resolution images suggest a degree of stenosis at | | the proximal cerebral aqueduct. TheSoft tissues and marrow: UnremarkableFace and orbits: | | Visualized portions are unremarkableIMPRESSION:1. Unchanged marked enlargement of the | | lateral and third ventricles compared to head CT of 08/09/17 and brain MRI of 05/31/14 with | | suggestion of underlying aqueductal stenosis; however, there appears to be a flow void | | within the cerebral aqueduct suggesting that the aqueduct is not entirely occluded.2. | | Grossly unchanged appearance of the right parafalcine present meningioma; lack of | | intravenous contrast and the current exam limits comparison.I have personally reviewed | | the images and, if necessary, edited the report. I agree with the report as now | | presented. | |1. Unchanged marked enlargement of the lateral and third ventricles compared to head CT of 08/09/17 and brain MRI of 05/31/14 with suggestion of underlying aqueductal stenosis; however, there appears to be a flow void | |within the cerebral aqueduct suggesting that the aqueduct is not entirely occluded. | | | |2. Grossly unchanged appearance of the right parafalcine present meningioma; lack of intrav enous contrast and the current exam limits comparison. | | | | | |I have personally reviewed the images and, if necessary, edited the report. I agree with t he report as now presented. | + + X-RAY ABD LTD FEEDING TUBE EVAL PORTABLE (08/07/2017 6:50 PM)Only the most recent of 3 res ults within the time period is included. + + + | Specimen | Performing Laboratory | + + + | | [facility] | + + + + + | Narrative | + + | HISTORY: Feeding tube. COMPARISON: KUB performed 6:07 PM earlier the same day. | | IMPRESSION: Single frontal view of the abdomen obtained. The tip of the feeding | | tube is in the gastric body, pointing toward the gastric outlet. I have | | personally reviewed the images and, if necessary, edited the report. I agree with the | | report as now presented. | + + + + | Procedure Note | + + | Service Account, Radiant Res In Interface - 08/08/2017 8:34 AM PDT HISTORY: Feeding | | tube.COMPARISON: KUB performed 6:07 PM earlier the same day.IMPRESSION:Single frontal | | view of the abdomen obtained. The tip of the feeding tube is in the gastric body, | | pointing toward the gastric outlet. I have personally reviewed the images and, if | | necessary, edited the report. I agree with the report as now presented. | | | |Single frontal view of the abdomen obtained. The tip of the feeding tube is in the gastric body, pointing toward the gastric outlet. | | | | | |I have personally reviewed the images and, if necessary, edited the report. I agree with t he report as now presented. | + + HEPATITIS B SURFACE AG W/REFLEX CONFIRMATION IF INDETERMINATE RESULTS (08/07/2017 3:10 PM) + + + + | Component | Value | Ref Range | + + + + | HEPATITIS B SURFACE | | | | AG, SERUM | | | + + + + | HEP B SURFACE AG | Not Detected | Not Detected | + + + + + + + | Specimen | Performing Laboratory | + + + | Blood | [facility], [facility] [address] | | | [place] [address] | + + + HEPATITIS B SURFACE AB QUAL, SERUM (08/07/2017 3:10 PM) + + + + | Component | Value | Ref Range | + + + + | HEP B SURFACE AB | Not Detected | Not Detected | | QUAL | | | + + + + + + + | Specimen | Performing Laboratory | + + + | Blood | [facility], [facility] [address] | | | [place] [address] | + + + EEG ROUTINE (08/07/2017 12:49 PM) + + | Narrative | + + | Patient Name: Andry Vega Date of : 1950 Medical Record | | Number: [id number] Date of Test: 08/07/2017 Place of Service: [facility] [phone] - | | [phone] [facility] Department: EEG [facility] - [id number] ROUTINE EEG Indications: Evaluate | | for seizures and epileptiform discharges History: Andry Vega is a 66 year old | | man with presumed congenital hydrocephalus with massive ventriculomegaly, end stage | | renal disease on hemodialysis, and seizures in 2014 (on levetiracetam) who presents with | | acute worsening of mental status. Medications: acetaminophen (TYLENOL) tablet | | 325-650 mg, 325-650 mg, oral, Q6H PRN amLODIPine (NORVASC) tablet 10 mg, 10 mg, oral, | | DAILY calcium carbonate tablet 520 mg elemental, 520 mg elemental, oral, DAILY | | carvedilol (COREG) tablet 3.125 mg, 3.125 mg, oral, BID W/MEALS cholecalciferol | | (Vitamin D3) (VITAMIN D-3) tablet 5,000 Units, 5,000 Units, oral, DAILY levETIRAcetam | | (KEPPRA) tablet 1,000 mg, 1,000 mg, oral, BID lisinopril (PRINIVIL) tablet 20 mg, 20 | | mg, oral, DAILY sevelamer HCl (RENAGEL) tablet 800 mg, 800 mg, oral, TID W/MEALS | | sodium chloride 0.9% IV infusion, 100-200 mL, intravenous, 4B DIALYSIS PRN torsemide | | (DEMADEX) tablet 50 mg, 50 mg, oral, DAILY Methods: This study was an inpatient EEG | | with a duration of 28 minutes, 58 seconds. The recording was performed with routine | | electrodes applied according to the 10-20 electrode placement system. Video, EKG, and | | EOG monitoring were utilized. The recording was obtained on a digital system. EEG | | computer review was utilized. Automated digital spike and seizure detection analysis was | | used, along with patient-activated alarms and nursing observations. EEG Description | | The record was obtained in the encephalopathic state. No sedation was used. The | | background is continuous and symmetric; predominately comprised of a mixture of low | | voltage polymorphic delta/theta activity with frequent long runs ofhigh voltage, | | frontally predominate, 1.0 to 1.5 hz generalized periodic discharges. These generalized | | discharges often have a triphasic morphology with an anterior to posterior lag and do | | not appear to have any evolution in frequency or morphology. No posterior dominant | | rhythm seen and normal anterior to posterior gradient is absent. No normal sleep | | transitions were visualized. EEG does appear to reactive to external stimuli | | Interictal Findings: Abnormal slow wave activity: Moderate continuous background | | slowing Epileptiform activity: No clearly epileptiform activity seen Ictal | | Activity: No seizures were observed. Clinical Events: None Other variants: None | | Activations were not performed. Extra leads: Single EKG lead showed a normal | | sinus rhythm. IMPRESSION This inpatient EEG in the encephalopathic patient is | | abnormal due to 1) 1.0 to 1.5 generalized periodic discharges with triphasic | | morphology 2) Moderate generalized slowing, continuous. Generalized slowing to this | | degree correlates with moderate encephalopathy that is nonspecific in etiology. | | Generalized period discharges are usually an indicator of metabolic encephalopathy in | | the setting of critical illness. Triphasic wave morphology is also often seen in | | patients with metabolic encephalopathy, particularly those patients hepatic or renal | | failure. No epileptiform activity or seizure seen. Results have been communicated to the | | consult neurology service. snf EEG to follow. Bernabe Jackson, DO Epilepsy | | Fellow [facility] NEUROLOGY ATTENDING ATTESTATION I | | independently reviewed the EEG record, edited the report as necessary, and agree with | | the fellow's interpretation as documented. Date of Service: 08/07/2017 Tanika Fox | | MD [facility] Traffic Supervisor, Neurology/Epilepsy | | Billing/Coding: | | Provider: Tanika Isbell MD Date: 08/07/17 Suggested Modifier: GC - Resident Present | | Suggested CPT: 77431 - EEG Asleep Only Suggested Dx: G93.49 Other encephalopathy | + + X-RAY PORTABLE CHEST 1 VIEW (08/07/2017 4:44 AM) + + + | Specimen | Performing Laboratory | + + + | | [facility] | + + + + + | Narrative | + + | STUDY: MI CHEST 1 VIEW HISTORY: Altered mental status COMPARISON: 08/06/2017 | | FINDINGS: The cardiomediastinal silhouette is within normal limits. There is no | | significant pneumothorax or pleural effusion. No focal consolidative air space | | opacities. No acute displaced rib fracture. IMPRESSION: No acute | | cardiopulmonary abnormalities. I have personally reviewed the images and, if | | necessary, edited the report. I agree with the report as now presented. | + + + + | Procedure Note | + + | Service Account, Radiant Res In Interface - 08/07/2017 8:04 AM PDT STUDY: MI CHEST 1 | | VIEWHISTORY: Altered mental statusCOMPARISON: 08/06/2017FINDINGS: The cardiomediastinal | | silhouette is within normal limits. There is no significant pneumothorax or pleural | | effusion. No focal consolidative air space opacities. No acute displaced rib | | fracture.IMPRESSION: No acute cardiopulmonary abnormalities.I have personally reviewed | | the images and, if necessary, edited the report. I agree with the report as now | | presented. | | | |The cardiomediastinal silhouette is within normal limits. There is no significant pneumotho rax or pleural effusion. No focal consolidative air space opacities. No acute displaced rib fracture. | | | |IMPRESSION: | | | |No acute cardiopulmonary abnormalities. | | | | | |I have personally reviewed the images and, if necessary, edited the report. I agree with t he report as now presented. | + + 12 LEAD ECG (08/07/2017 4:30 AM) + + + + | Component | Value | Ref Range | + + + + | VENTRICULAR RATE | 65 | bpm | + + + + | ATRIAL RATE | 65 | ms | + + + + | P-R INTERVAL | 158 | ms | + + + + | P AXIS | 55 | deg | + + + + | QRS DURATION | 98 | ms | + + + + | QT | 412 | ms | + + + + | QTCB | 429 | ms | + + + + | R AXIS | -32 | deg | + + + + | T AXIS | 71 | deg | + + + + | ECG IMPRESSION | Sinus rhythm | | + + + + | ECG IMPRESSION | Probable left atrial enlargement | | + + + + | ECG IMPRESSION | Left ventricular hypertrophy | | + + + + | ECG IMPRESSION | Anterior Q waves, possibly due to LVH- | | | | ABNORMAL ECG - | | + + + + | ECG IMPRESSION | Electronically signed by: DENNIS DIETZ | | | | 08-07-2017 09:57:04 | | + + + + + + + | Specimen | Performing Laboratory | + + + | | [facility] [address] | | | [place] [address] | + + + ED BG-LAC,POC (08/07/2017 3:59 AM) + +--------+ + | Component | Value | Ref Range | + +--------+ + | ED BG POC TC02 | 37 (H) | 23 - 29 mmol/L | + +--------+ + | ED BG POC PH | 7.39 | 7.35 - 7.45 | + +--------+ + | ED BG POC PCO2 | 58 (H) | 35 - 50 mmHg | + +--------+ + | ED BG POC HCO3 | 35 (H) | 22 - 28 mmol/L | + +--------+ + | ED BG POC BE | 10.0 | mmol/L | + +--------+ + | ED BG POC PO2 | <50 | 30 - 55 mmHg | + +--------+ + | ED BG POC SO2 | 72 | % | + +--------+ + | ED LACTATE POC | 0.8 | 0.5 - 2.2 mmol/L | + +--------+ + | ED BG POC TEMP | 36.7 C | | + +--------+ + | ISTAT SAMPLE TYPE | VENOUS | | + +--------+ + + + + | Specimen | Performing Laboratory | + + + | | [facility] [address] | | | [place] [address] | + + + RAINBOW HOLD TUBE - RED TOP (08/07/2017 3:47 AM) + + + | Specimen | Performing Laboratory | + + + | Blood | [facility], CORE [address] | | | [place] [address] | + + + RAINBOW HOLD TUBE - PURPLE TOP (08/07/2017 3:47 AM) + + + | Specimen | Performing Laboratory | + + + | Blood | [facility], CORE [address] | | | [place] [address] | + + + RAINBOW HOLD TUBE - GREEN TOP (08/07/2017 3:47 AM) + + + | Specimen | Performing Laboratory | + + + | Blood | [facility], CORE [address] | | | [facility] [place] [address] | + + + RAINBOW HOLD TUBE - BLUE TOP (08/07/2017 3:47 AM) + + + | Specimen | Performing Laboratory | + + + | Blood | [facility], CORE [address] | | | [place] [address] | + + + LEW CARMEN (08/07/2017 3:47 AM) + + + | Specimen | Performing Laboratory | + + + | Blood | | + + + + + | Narrative | + + | The following orders were created for panel order RAINBOW HOLD, CORE PANEL. | | Procedure | | Abnormality Status | | --------- | | ------ RAINBOW HOLD | | TUBE - BLUE...[[id number]] Final | | result RAINBOW HOLD TUBE - | | GREE...[[id number]] Final | | result RAINBOW HOLD TUBE - | | PURP...[[id number]] Final | | result RAINBOW HOLD TUBE - RED | | TOP[[id number]] Final | | result Please view results for these tests on the | | individual orders. | + + BLOOD BANK HOLD TUBE - DON T PROCESS (08/07/2017 3:47 AM) + + + + | Component | Value | Ref Range | + + + + | SPECIMEN COLLECTED, | Sample received with adeq label/volume to | | | HELD | process | | + + + + + + + | Specimen | Performing Laboratory | + + + | Blood | [facility] [address] | | | [place] [address] | + + + CBC AND AUTO DIFF (08/07/2017 3:47 AM) + + + + | Component | Value | Ref Range | + + + + | WHITE CELL COUNT | 9.37 | 3.50 - 10.80 K/cu mm | + + + + | RED CELL COUNT | 3.54 (L) | 4.50 - 6.00 M/cu mm | + + + + | HEMOGLOBIN | 11.0 (L) | 13.5 - 17.5 g/dL | + + + + | HEMATOCRIT | 33.2 (L) | 41.0 - 53.0 % | + + + + | MCV | 93.8 | 80.0 - 96.0 fL | + + + + | MCHC | 33.1 | 33.0 - 35.5 g/dL | + + + + | RDW SD | 46.5 (H) | 35.1 - 46.3 fL | + + + + | PLATELET COUNT | 187 | 150 - 400 K/cu mm | + + + + | MPV | 9.0 (L) | 9.7 - 12.3 fL | + + + + | NRBC% | 0.0 | 0.0 - 0.3 % | + + + + | NRBC# | 0.00 | 0.00 - 0.02 K/cu mm | + + + + | NEUTROPHIL % | 75.7 (H) | 50.0 - 70.0 % | + + + + | LYMPHOCYTE % | 12.6 (L) | 18.0 - 42.0 % | + + + + | MONOCYTE % | 7.7 | 3.5 - 9.0 % | + + + + | EOS % | 3.3 (H) | 1.0 - 3.0 % | + + + + | BASO % | 0.3 | 0.0 - 2.0 % | + + + + | IG% | 0.4Comment: Increased immature granulocytes | 0.0 - 1.0 % | | | (IG) define a left shift. Immature | | | | granulocytes (IG) are an automated count of | | | | metamyelocytes, myelocytes and | | | | promyelocytes. Bands are not included in | | | | the IG count. Bands are included in the | | | | neutrophil count. | | + + + + | NEUTROPHIL # | 7.09 | 1.80 - 7.70 K/cu mm | + + + + | LYMPHOCYTE # | 1.18 | 1.00 - 4.80 K/cu mm | + + + + | MONOCYTE # | 0.72 | 0.10 - 0.90 K/cu mm | + + + + | EOS # | 0.31 | 0.00 - 0.50 K/cu mm | + + + + | BASO # | 0.03 | 0.00 - 0.10 K/cu mm | + + + + | IG# | 0.04 | 0.00 - 0.10 K/cu mm | + + + + + + + | Specimen | Performing Laboratory | + + + | Blood | [facility], CORE [address] | | | [place] [address] | + + + + + | Narrative | + + | New reference ranges for IG% and IG# effective 05/14/2017. Increased immature | | granulocytes (IG) define a left shift. Immature granulocytes (IG) are an automated count | | of metamyelocytes, myelocytes and promyelocytes. Bands are not included in the IG | | count. Bands are included in the neutrophil count. | + + INR (08/07/2017 3:47 AM) + +-------+ + | Component | Value | Ref Range | + +-------+ + | INR | 1.12 | 0.90 - 1.20 INR | + +-------+ + + + + | Specimen | Performing Laboratory | + + + | Blood | [facility], CORE [address] | | | [place] [address] | + + + + + | Narrative | + + | INR Therapeutic ranges for full anticoagulation: INR for Venous | | Thromboembolism (2.0 - 3.0) INR INR for most patients with | | mech. valves (2.5 - 3.5) INR | + + CBC, WITH DIFFERENTIAL (08/07/2017 3:47 AM) + + + | Specimen | Performing Laboratory | + + + | Blood | | + + + + + | Narrative | + + | The following orders were created for panel order CBC, WITH DIFFERENTIAL. | | Procedure | | Abnormality Status | | --------- | | ------ CBC AND AUTO | | DIFF[[id number]] Abnormal Final | | result Please view results for these tests on the | | individual orders. | + + TROPONIN I, PLASMA (08/07/2017 3:47 AM) + +-------+ + | Component | Value | Ref Range | + +-------+ + | TROPONIN I | 0.05 | <0.80 ng/mL | + +-------+ + + + + | Specimen | Performing Laboratory | + + + | Blood | [facility], CORE [address] | | | [place] [address] | + + + from Last 3 Months
--- OUTSIDE RECORDS SUMMARY | ~2017-08-26 | XMS | Encounter Summary ---
Demographics + + + | Address | [address] | | | [place] [address] | + + + | Home Phone | | + + + | Preferred Language | Unknown | + + + | Marital Status | Single | + + + | Shinto Affiliation | NRP | + + + | Race | White | + + + | Ethnic Group | Not or | + + + Author + + + | Author | [facility] | + + + | Organization | [facility] | + + + | Address | Unknown | + + + | Phone | Unavailable | + + + Support + + + + + | Name | Relationship | Address | Phone | + + + + + | Bharti Moses | ECON | [address] | | | | | [place] [address] | | + + + + + | Florentin Vega | ECON | Unknown | | + + + + + Care Team Providers + +------+ + | Care Handyman Name | Role | Phone | + +------+ + | Wilber Mcgee DO | PCP | | + +------+ + Encounter Details +--------+ + + + + | Date | Type | Department | Care Team | Description | +--------+ + + + + | 08/09/ | Document-Sc | UNKNOWN DEPARTMENT | Unknown . | | | 2018 | anned | [address] | | | | | | [facility] | | | | | | [place], [place] | | | | | | [address] | | | +--------+ + + + [...] + + + as of this encounter Functional Status + + + + | Functional Status | Response | Date of Assessment | + + + + | Because of a physical, mental, or emotional | No | 08/07/2017 | | condition, do you have serious difficulty | | | | doing errands alone such as visiting the | | | | doctor? | | | + + + + + + + + | Cognitive Status | Response | Date of Assessment | + + + + | Because of a physical, mental, or emotional | No | 08/07/2017 | | condition, do you have serious difficulty | | | | concentrating, remembering, or making | | | | decisions? (5 years old or older) | | | + + + + as of this encounter Plan of Treatment Not on fileas of this encounter Visit Diagnoses Not on filein this encounter"
--- OUTSIDE RECORDS SUMMARY | ~2017-08-26 | XMS | Encounter Summary ---
Demographics + + + | Address | [address] | | | [place] [address] | + + + | Home Phone | | + + + | Preferred Language | Unknown | + + + | Marital Status | Single | + + + | Protestant Affiliation | NRP | + + + | Race | White | + + + | Ethnic Group | Not or | + + + Author + + + | Author | [facility] | + + + | Organization | [facility] | + + + | Address | Unknown | + + + | Phone | Unavailable | + + + Support + + + + + | Name | Relationship | Address | Phone | + + + + + | Bharti Moses | ECON | [address] | | | | | [place] [address] | | + + + + + | Florentin Vega | ECON | Unknown | | + + + + + Care Team Providers + +------+ + | Care Experimental Technician Name | Role | Phone | [...] [address] | | | | | | [facility] | | | | | | [place], [place] | | | | | | [address] | | | +--------+ + + + [...]
--- OUTSIDE RECORDS SUMMARY | ~2017-08-26 | XMS | Encounter Summary ---
Demographics + + + | Address | [address] | | | [place] [address] | + + + | Home Phone | | + + + | Preferred Language | Unknown | + + + | Marital Status | Single | + + + | Anglican Affiliation | NRP | + + + | Race | White | + + + | Ethnic Group | Not or | + + + Author + + + | Author | [facility] | + + + | Organization | [facility] | + + + | Address | Unknown | + + + | Phone | Unavailable | + + + Support + + + + + | Name | Relationship | Address | Phone | + + + + + | Bharti Moses | ECON | [address] | | | | | [place] [address] | | + + + + + | Florentin Vega | ECON | Unknown | | + + + + + Care Team Providers + +------+ + | Care Washroom Cleaner Name | Role | Phone | + +------+ + | Wilber Mcgee DO | PCP | | + +------+ + Reason for Referral Occupational Therapy (Routine) + +--------+ + + + + | Status | Reason | Specialty | Diagnoses / | Referred By | Referred To | | | | | Procedures | Contact | Contact | + +--------+ + + + + | New Request | | Occupational | Diagnoses | Laura, | | | | | Therapy | Gait | Amirah Ann MD | | | | | | instability | [address] | | | | | | Procedures | [facility] [address] | | | | | | | [address] | | | | | | OCCUPATIONAL | [place], [place] | | | | | | THERAPY | [address] | | | | | | REFERRAL | Phone: | | | | | | | [phone] | | | | | | | Fax: | | | | | | | [phone] | | + +--------+ + + + + Physical Therapy (Routine) + +--------+ + + + + | Status | Reason | Specialty | Diagnoses / | Referred By | Referred To | | | | | Procedures | Contact | Contact | + +--------+ + + + + | New Request | | Physical | Diagnoses | Laura, | | | | | Therapy | Gait | Amirah Ann MD | | | | | | instability | [address] | | | | | | Procedures | Shirley Mcadams | | | | | | PHYSICAL | [address] | | | | | | THERAPY | [place], [place] | | | | | | REFERRAL | [address] | | | | | | | Phone: | | | | | | | [phone] | | | | | | | Fax: | | | | | | | [phone] | | + +--------+ + + + + Reason for Visit + + + | Reason | Comments | + + + | Hydrocephalus | | + + + AUTH/CERT +--------+--------+ + + + + | Status | Reason | Specialty | Diagnoses / | Referred By | Referred To | | | | | Procedures | Contact | Contact | +--------+--------+ + + + + | | | | | | | +--------+--------+ + + + + Encounter Details +--------+ + + + + | Date | Type | Department | Care Team | Description | +--------+ + + + + | 08/07/ | Hospital | [facility] [address]C [address] | Tracey Ledesma MD | | | 2018 - | Encounter | [facility] | [address] | | | | | 14C [facility] | [facility] | | | 08/11/ | | [place], [place] | [place], [place] | | | 2017 | | [address] | [address] | | | | | [phone] | [phone] | | | | | | | | | | | | Paulo Trotter MD | | | | | | [address] | | | | | | [place], [place] | | | | | | [address] | | | | | | [phone] | | | | | | | | | | | | Manuela Hester, | | | | | | [address] | | | | | | [facility] | | | | | | [place], [place] | | | | | | [address] | | | | | | [phone] | | | | | | | | | | | | Leonidas Redd MD | [...] + + + as of this encounter Last Filed Vital Signs + + + [...] PM PDT | + + + + in this encounter Functional Status + + + [...] + + + as of this encounter Discharge Summaries Amirah Sanchez MD - 08/11/2017 2:09 PM PDTFormatting of this note may be different fro m the original. [facility] Discharge Summary Discharging Provider: AMIRAH SANCHEZ MD Discharging Attending Physician: Leonidas Redd MD PCP: Wilber Mcgee DO Admission Date: 08/07/2017 Discharge Date: 08/11/17 Hospital Stay: 4 day(s) Diagnosis: Principal Diagnosis: 1. Acute metabolic encephalopathy Additional Diagnoses: 2. Right parafalcine meningioma 3. Chronic hydrocephalus 4. Seizure disorder 5. ESRD 6. HTN 7. MGUS Procedures: none Reason for Admission: altered mental status Hospital Course by Problem # Right parafalcine meningioma c/b chronic hydrocephalus Patient presented with altered mental status and vomiting. He had a CT at an outside hospit al which was concerning for his known ventriculomegaly and he was sent to [facility] and admitted to neurosurgery service. Repeat brain MRI here showed a stable degree of ventriculomegaly. H is blood pressure medications had been held in the setting of vomiting and his BP at OSH was noted to be 234/104, however on arrival was down to 180s/90s. An EEG was obtained on 08/08 w [facility] showed slowing of background and triphasic waves suggestive of toxic-metabolic encephal opathy. Considered multiple potential etiologies for patient's ongoing fluctuating hypoactiv e delirium, although ultimately no clear precipitant was found and the patient returned to h is baseline mental status after 3 days. He had no e/o infection, electrolytes were wnl with dialysis, MRI was negative for PRES. Thiamine was started empirically given history of heavy EtOH use although patient's facility and life partner indicated he was no longer drinking o r using any other substances. Vitamin B12 and TSH were normal. Niacin was pending at time of discharge. - follow up niacin level - continue thiamine po - delirium precautions and avoidance of centrally active medications # Seizure disorder Keppra level initially supratherapeutic at 66, however repeat level was wnl. Home dose was not changed on discharge. - continue Keppra 1 gram BID for seizure prophylaxis # ESRD - on HD MWF # Normocytic anemia, chronic Patient was dialyzed according to his usual schedule. Nephrology did not feel that uremia w as a contributor to his mental status. Anemia was at baseline and above goal for ESRD. - continue HD MWF at [facility] with Dr. Aayuhs Kauffman - continue sevelamer # HTN Suspect his initial high BPs were related to missing doses of his medications. Stopped tor semide given that patient is anuric. Stopped verapamil as patient's BPs were well controlled (mostly <140/80) without it. - continued amlodipine 10 mg daily - continued carvedilol 3.125 mg BID - continued lisinopril 20 mg daily # MGUS Follows with hematology, last seen 08/01/[address] Martinez. Recommend follow-up with [facility] Hem atology for continued observation. Pertinent Findings: Labs: Lab Results Component Value Date WBC 6.09 08/10/2017 HB 10.1 08/10/2017 HCT 31.0 08/10/2017 PLT 164 08/10/2017 MCV 93.7 08/10/2017 RDW 46.1 08/10/2017 Recent Labs 08/08/17 1002 08/09/17 0700 08/10/17 0706 GLU 92 106* 86 BUN 33* 53* 30* CR 7.50* 10.40* 7.51* ALB 3.3* 2.9* 2.9* CA 9.0 8.7 9.1 PO4 4.5 -- 4.3 NA 137 136 137 CL 99 99 99 BICARB 30 30 34* Imaging: MRI brain 08/08/17: IMPRESSION: 1. Unchanged marked enlargement of the lateral and third ventricles compared to head CT of 08/09/17 and brain MRI of 05/31/14 with suggestion of underlying aqueductal stenosis; however, there appears to be a flow void within the cerebral aqueduct suggesting that the aqueduct is not entirely occluded. 2. Grossly unchanged appearance of the right parafalcine present meningioma; lack of intrav enous contrast and the current exam limits comparison. CXR 08/08/17: IMPRESSION: Single frontal view of the abdomen obtained. The tip of the feeding tube is in the gastric body, pointing toward the gastric outlet. Other Studies: Outstanding or Pending Labs/Studies: Consultants (service/attending name): Discharge Medications: Medication List START taking these medications calcium carbonate 260 mg elemental (648 mg total salt) Tab Take 2 tablets by mouth once daily. thiamine 100 mg Tab Take 1 tablet by mouth once daily. CHANGE how you take these medications amLODIPine 10 mg Tab Commonly known as: NORVASC Take 1 tablet by mouth once daily. What changed: Another medication with the same name was removed. Continue taking this medi cation, and follow the directions you see here. LINZESS 290 mcg Cap Generic drug: linaclotide Take 290 mcg by mouth once daily. What changed: how much to take CONTINUE taking these medications acetaminophen 325 mg Tab Commonly known as: TYLENOL Take 650 mg by mouth every four hours as needed for moderate pain. BISCOLAX 10 mg Supp Generic drug: bisacodyl Unwrap and insert 10 mg rectally once daily as needed (2nd line for constipation). carvedilol 6.25 mg Tab Commonly known as: COREG Take 6.25 mg by mouth two times daily. Hold for pulse < 50 bpm. Cholecalciferol (Vitamin D3) 5,000 unit Tab Take 5,000 Units by mouth once daily. FLEET MINERAL OIL Enem Generic drug: mineral oil Insert 133 mL rectally once daily as needed (3rd line for constipation). levETIRAcetam 1,000 mg Tab Commonly known as: KEPPRA Take 1,000 mg by mouth two times daily. lisinopril 20 mg Tab Commonly known as: PRINIVIL Take 20 mg by mouth once daily. polyethylene glycol 17 gram Pwpk Commonly known as: MIRALAX Mix 1 packet and take orally once daily as needed (1st line for constipation). RENVELA 800 mg Tab Generic drug: sevelamer carbonate Take 2,400 mg by mouth three times daily with meals. Hold if not eating. senna-docusate 8.6-50 mg Tab Commonly known as: SENOKOT S Take 2 tablets by mouth two times daily. sevelamer HCl 800 mg Tab Commonly known as: RENAGEL Take 800 mg by mouth once daily at bedtime. Give with evening snack. Hold if not eating. STOP taking these medications alfuzosin SR 10 mg Tb24 Commonly known as: UROXATRAL ondansetron 4 mg Tab Commonly known as: ZOFRAN promethazine 50 mg Supp Commonly known as: PHENERGAN torsemide 100 mg Tab Commonly known as: DEMADEX verapamil SR 12 hr 120 mg Tber Commonly known as: CALAN SR,ISOPTIN SR Rationale for Medication Changes: - thiamine started for empiric treatment of B1 deficiency - unable to confirm that patient was taking verapamil and given unknown indication, this w as held - promethazine and ondansetron stopped to reduce centrally acting meds - alfuzosin and torsemide stopped as patient is anuric Allergies: No Known Allergies Code Status: Do Not Resuscitate/Do Not Intubate POLST completed: no Additional Instructions: Condition on Discharge Stable Discharge Follow Up - Facility MD to follow Facility MD to follow patient. Code Status for Facility Status: Treatment Limits per POLST Condition on Discharge Fair Vital Signs Per policy Diet Renal Renal Diet: Sodium 2 gm, Potassium 2 gm, Low Phosphorus- You must follow a special diet bec ause of your kidney condition. This means that you must restrict your intake of foods high in potassium, sodium and phosphorus. You may also need to limit your intake of fluids. Your healthcare provider will provide you with some guidelines to follow. We recommend regular food texture and thin liquids. Activity No activity restrictions Activity No activity restrictions. Continue PT, OT as tolerated Who To Call For Problems HOW TO REACH YOUR MEDICINE TEAM WITH QUESTIONS, CONCERNS, OR NEW SYMPTOMS: Thank you for entrusting your care to [facility] Internal Medicine. If you have any problems or concerns before you are able to follow up with your Primary Care Provider, please call and ask the kettle operator head to page the attending physician, Leonidas Redd MD, who was caring for you at discharge. If that physician is not available, ask the kettle operator head to page the physician ediphone operator for the Medical Teaching Service. Discharge Destination - Selection Complete Service Request Status Selected Specialties Address Phone Number [facility] Number [facility] [address], [place] [address] [phone] Home Care Medical No service has been selected for the patient. Social Care Services No service has been selected for the patient. Follow Up: Future Appointments Department Dept Phone Center 08/07/2017 3:01 AM [facility] 14C [phone] Contact information for other follow-up providers WILBER MCGEE DO In 1 week. Specialty: Family Medicine Contact information [address] [place] [address] Contact information for after-discharge care [facility] Contact information [address] [place] [address] Discharge Physical Exam: BP Readings from Last 1 Encounters: 08/11/17 140/62 Pulse Readings from Last 1 Encounters: 08/11/17 68 Resp Readings from Last 1 Encounters: 08/11/17 16 Wt Readings from Last 1 Encounters: 08/10/17 82.1 kg (181 lb) Temp Readings from Last 1 Encounters: 08/11/17 36.9 C (98.4 F) Body mass index is 29.23 kg/m. General: pleasant, alert, oriented x3 Heart: JVP at 10 cm, RRR Lungs: CTAB Abd: soft, non-distended, non-tender Neuro: CN II-XII intact. PERRL, + BTT, gaze conjugate. Strength equal in upper and lower e xtremities. High amplitude low frequency action tremor in arms bilaterally when moves antigr avity. 2+ upper extremities, 3+ LE and symetric, sustained ankle clonus AMIRAH SANCHEZ MD Associated attestation - Leonidas Redd MD - 08/17/2017 12:28 PM PDTGENERAL MEDICINE ATTE NDING DISCHARGE SUMMARY ATTESTATION I saw the patient and reviewed and verified all information documented by the resident, and made modifications of such information when appropriate. I agree with the plans as document ed except as expanded upon or clarified below. Andry was admitted with delirium. A thorough evaluation was unable to identify a focal tasha rce. His brain imaging demonstrated stability of his known hydrocephalus and meningioma. He did have mildly elevated BUN on arrival which cleared with dialysis. We also started him on empiric treatment for Wernicke's encephalopathy. His keppra level was supratherapeutic, so w e recommend dose adjusting it for his renal function. When he was cognitively back to his ba seline, we deemed Andry stable for discharge. Leonidas Redd MD [employer] [facility] in this encounter Medications at Time of Discharge + + +---------+---------+ + + | Medication | Sig. | Disp. | Refills | Start | End Date | | | | | | Date | | + + +---------+---------+ + + | acetaminophen 325 | Take 650 mg by mouth | | | | | | mg oral tablet | every four hours as | | | | | | | needed for moderate | | | | | | | pain. | | | | | + + +---------+---------+ + + | amLODIPine 10 mg | Take 1 tablet by | 30 | 2 | 04/20/20 | | | oral tablet | mouth once daily. | tablet | | 18 | | + + +---------+---------+ + + | bisacodyl | Unwrap and insert 10 | | | | | | (BISCOLAX) 10 mg | mg rectally once | | | | | | rectal suppository | daily as needed (2nd | | | | | | | line for | | | | | | | constipation). | | | | | + + +---------+---------+ + + | calcium carbonate | Take 2 tablets by | 30 | 1 | 08/12/19 | | | 260 mg elemental | mouth once daily. | tablet | | 18 | | | (648 mg total salt) | | | | | | | oral tablet | | | | | | + + +---------+---------+ + + | carvedilol 6.25 mg | Take 6.25 mg by | | | 07/20/19 | | | oral tablet | mouth two times | | | 18 | | | | daily. Hold for | | | | | | | pulse < 50 bpm. | | | | | + + +---------+---------+ + + | Cholecalciferol | Take 5,000 Units by | | | | | | (Vitamin D3) 5,000 | mouth once daily. | | | | | | unit oral tablet | | | | | | + + +---------+---------+ + + | levETIRAcetam | Take 1,000 mg by | | | 06/21/19 | | | 1,000 mg oral tablet | mouth two times | | | 18 | | | | daily. | | | | | + + +---------+---------+ + + | LINZESS 290 mcg | Take 290 mcg by | 30 | 0 | 08/11/19 | | | oral capsule | mouth once daily. | capsule | | 18 | | + + +---------+---------+ + + | lisinopril 20 mg | Take 20 mg by mouth | | | | | | oral tablet | once daily. | | | | | + + +---------+---------+ + + | mineral oil (FLEET | Insert 133 mL | | | | | | MINERAL OIL) rectal | rectally once daily | | | | | | enema | as needed (3rd line | | | | | | | for constipation). | | | | | + + +---------+---------+ + + | polyethylene | Mix 1 packet and | | | | | | glycol 17 gram oral | take orally once | | | | | | powder in packet | daily as needed (1st | | | | | | | line for | | | | | | | constipation). | | | | | + + +---------+---------+ + + | senna-docusate | Take 2 tablets by | | | | | | 8.6-50 mg oral | mouth two times | | | | | | tablet | daily. | | | | | + + +---------+---------+ + + | sevelamer | Take 2,400 mg by | | | | | | carbonate (RENVELA) | mouth three times | | | | | | 800 mg oral tablet | daily with meals. | | | | | | | Hold if not eating. | | | | | + + +---------+---------+ + + | sevelamer HCl 800 | Take 800 mg by mouth | | | | | | mg oral tablet | once daily at | | | | | | | bedtime. Give with | | | | | | | evening snack. Hold | | | | | | | if not eating. | | | | | + + +---------+---------+ + + | thiamine 100 mg | Take 1 tablet by | 30 | 1 | 08/12/19 | | | oral tablet | mouth once daily. | tablet | | 18 | | + + +---------+---------+ + + as of this encounter Progress Notes Leonidas Redd MD - 08/11/2017 2:18 PM [facility] MEDICINE ATTENDING PROGRESS NOTE ADMIT DATE: 08/07/2017 3:01 AM TODAY'S DATE: 08/11/2017 (HOSPITAL DAY 4) A student and/or resident assisted with documenting this service. I saw the patient and rev iewed and verified all information documented by the medical student and/or resident, and ma de modifications of such information when appropriate. I agree with the plans as documented except as expanded upon or clarified below. Andry was at dialysis at time of our visit today. His keppra level was elevated. Labs othe rwise unremarkable, cultures NGTD. His significant other, Bharti, visited yesterday and stated he appeared to be at his mental status baseline. We will adjust keppra dosing and plan for return to his facility today. Leonidas Redd MD [employer] clerk [facility] Leonidas Redd MD - 08/10/2017 12:23 PM PDTGENERAL MEDICINE ATTENDING PROGRESS NOTE ADMIT DATE: 08/07/2017 3:01 AM TODAY'S DATE: 08/10/2017 (HOSPITAL DAY 3) A student and/or resident assisted with documenting this service. I saw the patient and rev iewed and verified all information documented by the medical student and/or resident, and ma de modifications of such information when appropriate. I agree with the plans as documented except as expanded upon or clarified below. Andry appears much better today. He is oriented to self, city, and the hospital. He remain s uncertain of the year. He is making good eye contact, holding attention, and asking approp riate questions. His neurological exam is notable for an action tremor but no dysmetria, sym metric strength and cranial nerves. The cause of Andry's delirium remains unclear. The only potential etiologies which we have actively treated are Wernicke's encephalopathy and uremic encephalopathy, and so I must ult imately attribute it to one of these. A niacin level and a keppra level are both pending at this time. I am pleased that he is clearing. We will plan to confirm his baseline, but I suspect we ar e close to that, and that he will be ready for discharge from the hospital to return to his snf today. The only medication changes we will recommend are holding the torsemide (as he is anuric). Consideration could be made to discontinuing alfuzosin and linzess on an out patient basis, as well. Leonidas Redd MD [employer] clerk [facility] Del Carmencaromont healthStephanie Vargas - 08/10/2017 8:18 AM PDTFormatting of this note may be different from t jason carr. General Internal Medicine 4 Progress Note 24 Hour Events: -NAEO Current Symptoms: No pain complaints. Only complaining of fatigue and hunger. Physical Examination: Last 24 hour min/max Temp: 36.7 C (98.1 F) Temp Min: 36.4 C (97.5 F) Max: 37 C (98.6 F) Pulse: 72 Pulse Min: 62 Max: 75 Resp: 16 Resp Min: 16 Max: 16 BP: 124/67 BP Min: 123/58 Max: 161/64 SpO2: 93 % SpO2 Min: 92 % Max: 100 % Body mass index is 29.53 kg/m. General: Mr Vega was sleeping when I entered the room, he woke up when I called his name , and he remained awake during the rest of the exam. HEENT: JVP at 10 cm. Lungs: pt declined Heart: pt declined Abd: pt declined Neuro: AAO to self and place, not oriented to time. He has focused attention on our convers ation and responds to questions in sentences. He offers information without prompting (asked for scrambled eggs for breakfast). CN II-XII are intact. He has equal strength in his upper extremities and distal lower extremities bilaterally. He has an intention tremor. Laboratory Interpretation: Chemistries: Last 72 Hours (or 3 results) - Refreshable Recent Labs 08/08/17 1002 08/09/17 0700 08/10/17 0706 NA 137 136 137 K 4.6 4.5 4.6 CL 99 99 99 BICARB 30 30 34* BUN 33* 53* 30* EGFRAFRICAN 9* 6* 9* CR 7.50* 10.40* 7.51* GLU 92 106* 86 CA 9.0 8.7 9.1 MG -- 2.4 -- PO4 4.5 -- 4.3 CBC with diff last 72 hours (or 3 results) - Refreshable Recent Labs 08/10/17 0706 WBC 6.09 HB 10.1* HCT 31.0* PLT 164 B12 levels on 08/09: 1754 (ULN is 986) Niacin level is pending Keppra levels on 08/07 and 08/10 are still pending TSH of 1.35 (0.46-5.56) Micro Blood culture on 08/09: 2/2 pending Imaging Interpretation: No interval imaging to report. Brief Summary: Mr Vega is a 66 yo gentleman who presented to the hospital with altered mental status wh ose delirium has cleared with thiamine supplementation and dialsysis. Assessment and Plan #delirium #moderate BUN elevation Greatly improved from all prior neuro exams this student has done or witnessed. The etiolog y of this episode of delirium is still unclear. It seems most likely that the episode was ca talyzed by uremia or is related to Wernicke's encephalopathy given his history of alcohol us e, especially as these were the two conditions for which he received treatment while in the hospital. There is no evidence of B12 deficiency, hypothyroidism or hyperthyroidism. Cannot r/o niacin deficiency as lab values are pending but this seems very unlikely with no signs o f pellagra other than dementia. HTN encephalopathy seems very unlikely as symptoms have not reversed with control of blood pressure. EEG does not show signs of subclinical seizure acti vity. Bacteremia seems very unlikely given no signs of hypotension, tachycardia, or fever, b ut will verify with pending blood cultures. Will also check Keppra levels to see if high lev els of drug maybe contributing to his clinical picture. -Continue thiamine tablet 100 mg PO DAILY -Continue regularly scheduled dialysis -blood cultures, niacin, Keppra levels all pending #ESRD No dialysis scheduled for today. Will stick to [facility] schedule. -continue Sevelamer, will titrate up to 1,600 mg PO TID to get closer to patient's home dos e -Continue renal diet #hypertension Stable and well-controlled. Will discontinue torsemide due to minimal benefit given that yehuda kaba is anuric. -discontinue torsemide 50mg -continue amlodipine 10mg -continue carvedilol 3.125mg BID -continue lisinopril 20mg #NOS seizure disorder -continue Keppra 1 g BID #MGUS -Recommend patient follow up with outpatient senior environmental engineer for management #normocytic anemia Chronic and stable, likely 2/2 ESRD and HD. Food: Renal diet, mechanical soft, nectar thick Thrombophylaxis: heparin SC Code status: DNR/DNI SDM: life partner, Bharti Associated attestation - Cali Cabrera MD - 08/10/2017 5:03 PM PDTI've reviewed a ll new results, examined the patient and discussed the care with the team and agree with the plan described by medical student Stephanie Gonzales. Physical Exam: General: awake, in bed, quiet, able to converse and answer most questions HEENT: NCAT, PERRL, mildly disconjugate CARDS: RRR, 5/6 systolic murmur, loudest USB, normal radial/PT pulses B/L PULM: CTAB ABD: soft, ND, NTTP Extremities: warm, no edema, increased tone, cogwheeling NEURO: some difficulty w/ focus, CN appear intact, normal strength in upper extremities, un clear sensation to touch, ataxic Assessment and Plan: 66y M with hydrocephalus 2/2 congenital hydrocephalus, massive ventriculomegaly, R parafalc ine meningioma s/p radiation (2013), MGUS in surveillance, ESRD on HD (), seizure disorde r (kepp), hx of EtOH abuse, who presents with acute AMS c/b HTN. He now appears to be much more awake and lucent and both he and his partner Bharti agree that he has returned to his b aseline mental status. - discharge tomorrow back to SNF - renal diet, thin liquids - increase carvedilol and sevalimer. Stop torsemide Cindy Turcios Rebecca, MD - 08/08/2017 8:11 AM PDTGM attending Called by NSU PA with update that post HD pt's AMS/ delirium is not improved. 66 year old manw congenital hydrocephalus with massive ventriculomegaly,right parafalcine meningioma s/p radiation ESRD on HD (), and seizures disorder in 2014 for which he is o n keppra, who presents with acute worsening of mental status Accepted patient for Transfer to Consider neuro imaging and LP. Please see prior note for details. Called [phone] pager and placed on [employer] expected Manuela Hester MD - 08/07/2017 1:49 PM PDTGM attending Transfer Accept Note Transferring requesting - [facility] Neurosurgery Overnight admission Called for concern for delirium in a 66 year old manw congenital hyd rocephalus with massive ventriculomegaly,right parafalcine meningioma s/p radiation ESRD on HD (), and seizures disorder in 2014 for which he is on keppra, who presents with acute worsening of mental status. Pt getting HD today and is slightly better pre HD perteam. Would recommend checking on patient after HD to see the direction of his mental status and follow up Neurology consultation. If not improved post HD please call back and we would be glad to accept him on our Medicine service if needed Pt with chronic alcohol abuse Recommend to stop any unnecessary [employer] altering medications. Also at risk for etoh with draw l if a chronic drinker. Spoke with Lary LUNA who will let us know if we are needed further based on clearing of AMS post HD If not better would also consider LP / MRI brain given above. Chris Jean MD - 08/07/2017 5:01 AM PDTI received a call from ED, then talked with NSG resident Joni Sanon about potential consult request to [facility] regarding Mr. Vega (at the sancho e of this documentation, I have not seen the patient). 66 yo M with PMH of ESRD, HTN, congenital ventriculomegaly, seizure d/o, who developed AMS, found to have hydrocephalus admitted on NSG. Per Dr. Sanon, [facility] would like to have consultants for w/up of AMS and mngt of ESRD. Their i nitial plan is to consult neurology for AMS and [facility] for ESRD mngt. -> I explained that for ESRD, nephrology should be consulted ([facility] does not manage dialysis ). -> I also asked what [facility] can add to the mngt and w/up of AMS given that they have plan to consult neurology -> Dr. Sanon did not answer any specific consult question besides "for medical management" -> then Dr. Sanon asked me to talk with NSG attending to clarify if [facility] needs to be involv ed I called NSG attending Dr. Paulo Trotter to confirm the consult question. Per Dr. Trotter, he was hoping to have assistance for only ESRD from [facility]. I explained that we don't manage ESRD and that NSG needs to consult nephrology. I also asked him if he would like us to be involv ed in Mr. Vega's care for any other problems, but Dr. Trotter told me that he does not nee d any assistance from [facility] at this moment. I told him that [facility] would be happy to be consulted at any time if any problem arises during the course of pt's hospital stay. If any new problem or question arises and you need assistance from our [facility] service, please feel free to contact us on pager [phone]. I updated NSG resident Dr. Sanon about my conversati on with NSG attending Dr. Trotter by text page.in this encounter Plan of Treatment + +--------+ + + | Name | Priori | Associated Diagnoses | Order Schedule | | | ty | | | + +--------+ + + | URINE SCREEN FOR CULTURE | Routin | | Collect Now for 1 | | | e | | Occurrences starting | | | | | 08/07/2017 until | | | | | 08/07/2017 | + +--------+ + + | URINE, MICROSCOPIC EXAM | Routin | | Collect Now for 1 | | | e | | Occurrences starting | | | | | 08/07/2017 until | | | | | 08/07/2017 | + +--------+ + + as of this encounter Procedures + +--------+ + + + | [...] | | + +--------+ + + + in this encounter Results CBC (HEMOGRAM) ONLY (08/10/2017 7:06 AM) [...] | + + + | Blood | [facility], [place] [address] [place] [address] | | | [place] [address] | + + + CBC ONLY (08/10/2017 7:06 AM) + + + | Specimen | Performing Laboratory | + + + | Blood | | + + + + + | Narrative | + + | The following orders were created for panel order CBC ONLY. | | Procedure | | Abnormality Status | | --------- | | ------ CBC (HEMOGRAM) | | ONLY[[id number]] Abnormal Final | | result Please view results for these tests on the | | individual orders. | + + RENAL FUNCTION SET (NA,K,CL,CO2,BUN,CREAT,GLUC,CA,PHOS,ALB ) (08/10/2017 7:06 AM) + + + + [...] 9 (L) | >60 mL/min | | [place] | | | + + + + | EGFR NON | 7 (L) | >60 mL/min | | -[place] | | | + + + + [...] | + + + | Blood | [facility], [facility] [address] | | | [place] [address] | + + + + + | [...] Rapidly changing kidney function | + + LEVETIRACETAM (KEPPRA), SERUM (08/10/2017 7:06 AM) + +-------+ + | Component | Value | Ref Range | + +-------+ + | LEVETIRACETAM | 40.3 | 12.0 - 46.0 mcg/mL | | (JACINDA) | | | + +-------+ + + + + | Specimen | Performing Laboratory | + + + | Blood | [facility] [address] [place], [place] | | | [address] | + + + TSH (08/10/2017 7:06 AM) + +-------+ + | Component | Value | Ref Range | + +-------+ + | TSH | 1.35 | 0.46 - 5.56 mIU/L | + +-------+ + + + + | Specimen | Performing Laboratory | + + + | Blood | [facility], [place] [address] | | | [place] [address] | + + + + + | Narrative | + + | TSH reference ranges are influenced by a variety of environmental influences, age, | | gender and ethnicity. The supplied reference limits are based on published values | | utilizing a similar TSH assay, and should be interpreted with caution. | + + CULTURE, BLOOD BACTI & YEAST SUBHASH (08/09/2017 3:41 PM) + + + + | Component | Value | Ref Range | + + + + | CULTURE RESULT | Final Report:No Bacteria or Yeast isolated | | | | at 5 days. | | + + + + + + + | Specimen | Performing Laboratory | + + + | Blood - Antecubital | [facility], [place] [address] | | - left | [place] [address] | + + + LAB OTHER (08/09/2017 [...] REFERRAL LAB NAME | Test performed by [employer] [address] | | | | [place], [place] | | | | [address] | | | | [email or web address] | | | | [email or web address] | | | | | | | [...] CULTURE, BLOOD BACTI & YEAST (08/09/2017 3:41 PM) + + + | Specimen | Performing Laboratory | + + + | Blood | | + + + + + | Narrative | + + | The following orders were created for panel order CULTURE, BLOOD BACTI & YEAST. | | Procedure | | Abnormality Status | | --------- | | ------ CULTURE, BLOOD | | BACTI & Y...[[id number]] Final | | result Please view results for these tests on the | | individual orders. | + + CULTURE, BLOOD BACTI & YEAST SUBHASH (08/09/2017 3:40 PM) + + + + | Component | Value | Ref Range | + + + + | CULTURE RESULT | Final Report:No Bacteria or Yeast isolated | | | | at 5 days. | | + + + + + + + | Specimen | Performing Laboratory | + + + | Blood - Arm - left | [facility], [place] [address] | | | [place] [address] | + + + CULTURE, BLOOD BACTI & YEAST (08/09/2017 3:40 PM) + + + | Specimen | Performing Laboratory | + + + | Blood | | + + + + + | Narrative | + + | The following orders were created for panel order CULTURE, BLOOD BACTI & YEAST. | | Procedure | | Abnormality Status | | --------- | | ------ CULTURE, BLOOD | | BACTI & Y...[[id number]] Final | | result Please view results [...] | + + + | Blood | [facility], [place] [address] [place] [address] | | | [place] [address] | + + + MAGNESIUM, PLASMA (08/09/2017 7:00 AM) + +-------+ + | Component | Value | Ref Range | + +-------+ + | MAGNESIUM,PLASMA | 2.4 | 1.6 - 2.6 mg/dL | + +-------+ + + + + | Specimen | Performing Laboratory | + + + | Blood | [facility], [place] [address] | | | [place], [place] [address] | + + + + + | Narrative | + + | Reference range change effective 12/06/16. | + + COMPLETE METABOLIC SET (NA,K,CL,CO2,BUN,CREAT,GLUC,CA,AST,ALT,BILI TOTAL,ALK PHOS,ALB,PROT TOTAL) (08/09/2017 7:00 AM) + + + + | Component [...] 6 (L) | >60 mL/min | | [place] | | | + + + + | EGFR NON | 5 (L) | >60 mL/min | | -[place] | | | + + + + [...] | | + + + + | COTYI T CMNT | No Hemo | | + + + + | AST CMNT | No Hemo | | + + + + + + + | Specimen | Performing Laboratory | + + + | Blood | [facility], [place] [address] | | | [place] [address] | + + + + + | Narrative | + + | Adult glucose reference range change effective 7-. GFR is estimated using the | | [...] Rapidly changing kidney function | + + EEG CONTINUOUS, ADULT (08/08/2017 10:26 AM) + + | Narrative | + + | Patient Name: Andry Veag Date of : 1950 Medical Record | | Number: [id number] Date of Test: 08/08/2017 Place of Service: [facility] [phone] - | | [id number] [facility] Department: EEG [facility] [id number] CUSTOMER CARE TEAM COACH VIDEO EEG Start | | Date/Time: 08/07/2017 [...] normal sinus rhythm. IMPRESSION | | This terminal superintendent EEG is abnormal due to: 1) Frequent [...] | | Signed: 08/08/2017 Tanika Isbell MD [employer], Neurology/Epilepsy | | Billing/Coding: | | Provider: Tanika Isbell MD Date: 08/07/17 Suggested Modifier: GC - Resident Present | | Suggested CPT: 88837 - EEG Extended (1 - 6 hours) Suggested Dx: G93.49 Other | | encephalopathy | + + RENAL FUNCTION SET (NA,K,CL,CO2,BUN,CREAT,GLUC,CA,PHOS,ALB ) (08/08/2017 10:02 AM) + + + + | Component | Value | Ref Range | + + + + | GLUCOSE, PLASMA | 92 | 70 - 99 mg/dL | | (LAB) | | | + + + + | BUN, PLASMA (LAB) | 33 (H) | 6 - 20 mg/dL | + + + + | CREATININE PLASMA | 7.50 (H) | 0.70 - 1.30 mg/dL | | (LAB) | | | + + + + | EGFR - | 9 (L) | >60 mL/min | | [place] | | | + + + + | EGFR NON | 7 (L) | >60 mL/min | | -[place] | | | + + + + [...] + + + | CALCIUM, PLASMA | 9.0 | 8.6 - 10.2 mg/dL | | (LAB) | | | + + + + | CALCIUM(ALB | 9.6 | 8.6 - 10.2 mg/dL | | CORRECTED) | | | + + + + | ALBUMIN, PLASMA | 3.3 (L) | 3.5 - 4.7 g/dL | | (LAB) | | | + + + + | PHOSPHORUS, PLASMA | 4.5 | 2.4 - 4.7 mg/dL | | (LAB) | | | + + + + | POTASSIUM CMNT | No Hemo | | + + + + | ANION GAP | 8 | 4 - 11 mmol/L | + + + + | ANION GAP(ALB | 9 | 4 - 11 mmol/L | | CORRECTED) | | | + + + + + + + | Specimen | Performing Laboratory | + + + | Blood | [facility], [place] [address] | | | [place] [address] | + + + + + | Narrative | + + | Adult glucose reference range change effective 7-12-17. GFR is estimated using the | | [...] Rapidly changing kidney function | + + MRI BRAIN WO CONTRAST [...] LTD FEEDING TUBE EVAL PORTABLE (08/07/2017 6:50 PM) + + + | Specimen | [...] Note | + + | Service Account, [employer] In Interface - 08/08/2017 8:34 AM PDT [...] ABD LTD FEEDING TUBE EVAL PORTABLE (08/07/2017 6:12 PM) + + + | Specimen | Performing Laboratory | + + + | | [facility] VOICE RECOGNITION | + + + + + | Narrative | + + | HISTORY: Feeding tube. COMPARISON: KUB performed 10 00 a.m. earlier the same day. | | IMPRESSION: Single frontal view of the abdomen obtained. The tip of the feeding | | tube is in the gastric body, pointing inferiorly. I have personally reviewed the | | images and, if necessary, edited the report. I agree with the report as now | | presented. | + + + + | Procedure Note | + + | Service Account, [employer] In Interface - 08/08/2017 8:34 AM PDT HISTORY: Feeding | | tube.COMPARISON: KUB performed 10 00 a.m. earlier the same day.IMPRESSION:Single frontal | | view of the abdomen obtained. The tip of the feeding tube is in the gastric body, | | pointing inferiorly. I have personally reviewed the images and, if necessary, edited the | | report. I agree with the report as now presented. | | | |Single frontal view of the abdomen obtained. The tip of the feeding tube is in the gastric body, pointing inferiorly. | | | | | |I have personally reviewed the images and, if necessary, edited the report. I agree with t he report as now presented. | + + HEPATITIS B SURFACE AB QUAL, SERUM (08/07/2017 3:10 PM) + + + + | Component | Value | Ref Range | + + + + | HEP B SURFACE AB | Not Detected | Not Detected | | QUAL | | | + + + + + + + | Specimen | Performing Laboratory | + + + | Blood | [facility], [place] [address] | | | [place] [address] | + + + HEPATITIS B SURFACE AG W/REFLEX [...] | + + + | Blood | [facility], [place] [address] | | | [place] [address] | + + + EEG ROUTINE (08/07/2017 12:49 PM) + + | Narrative | + + | Patient Name: Andry Vega Date of : 1950 Medical Record | | Number: [id number] Date of Test: 08/07/2017 Place of Service: [facility] [phone] - | | [id number] [facility] Department: EEG [facility] - [id number] ROUTINE EEG Indications: Evaluate | | for [...] to the | | consult neurology service. retirement EEG to follow. Bernabe Jackson DO Epilepsy | | Fellow [facility] NEUROLOGY ATTENDING ATTESTATION I | | independently reviewed the EEG record, edited the report as necessary, and agree with | | the fellow's interpretation as documented. Date of Service: 08/07/2017 Tanika Fox | | MD [facility] [employer], Neurology/Epilepsy | | Billing/Coding: | | Provider: Tanika Isbell MD Date: 08/07/17 Suggested Modifier: GC - Resident Present | | Suggested CPT: 74729 - EEG Asleep Only Suggested Dx: G93.49 Other encephalopathy | + + X-RAY ABD LTD FEEDING TUBE EVAL PORTABLE (08/07/2017 10:40 AM) + + + | Specimen | Performing Laboratory | + + + | | [facility] VOICE RECOGNITION | + + + + + | Narrative | + + | EXAM: Single upright view of the abdomen. History: Feeding tube placement. | | Comparison: None available. IMPRESSION: Esophagogastric tube extends to the | | GE junction; this should be advanced. No evidence of bowel obstruction. No free | | air. Moderate fecal loading partially viewed. I have personally reviewed the | | images and, if necessary, edited the report. I agree with the report as now | | presented. | + + + + | Procedure Note | + + | Service Account, [employer] Res In Interface - 08/07/2017 11:56 AM PDT EXAM: Single | | upright view of the abdomen.History: Feeding tube placement.Comparison: None | | available.IMPRESSION: Esophagogastric tube extends to the GE junction; this should be | | advanced. No evidence of bowel obstruction. No free air. Moderate fecal loading | | partially viewed.I have personally reviewed the images and, if necessary, edited the | | report. I agree with the report as now presented. | |IMPRESSION: | | | | Esophagogastric tube extends to the GE junction; this should be advanced. No evidence of bowel obstruction. No free air. Moderate fecal loading partially viewed. | | | | | |I have personally reviewed the images and, if necessary, edited the report. I agree with t he report as now presented. | + + LEVETIRACETAM (JACINDA), SERUM (08/07/2017 9:49 AM) + + + + | Component | Value | Ref Range | + + + + | LEVETIRACETAM | 66.2 (H) | 12.0 - 46.0 mcg/mL | | (KEPPRA) | | | + + + + + + + | Specimen | Performing Laboratory | + + + | Blood | [facility] [address] [place], [place] | | | [address] | + + + X-RAY PORTABLE CHEST 1 VIEW (08/07/2017 4:44 AM) + + + | Specimen | Performing Laboratory | + + + | | [facility] VOICE RECOGNITION | + + + + + | Narrative | + + | STUDY: KS CHEST 1 VIEW HISTORY: Altered mental status [...] Interface - 08/07/2017 8:04 AM PDT STUDY: KS CHEST 1 | | VIEWHISTORY: Altered mental [...] Laboratory | + + + | | [facility] [address] | | | [place] [address] | + + + ED NIRAV GAMA (08/07/2017 3:59 AM) + +--------+ + | [...] Laboratory | + + + | | [facility], POINT OF CARE TESTS [address] | | | [place] [address] | + + + RAINBOW HOLD TUBE - RED TOP (08/07/2017 3:47 AM) + + + | Specimen | Performing Laboratory | + + + | Blood | [facility], [place] [address] [place] [address] | | | [place] [address] | + + + RAINBOW HOLD TUBE - PURPLE TOP (08/07/2017 3:47 AM) + + + | Specimen | Performing Laboratory | + + + | Blood | [facility], [place] [address] | | | [place] [address] | + + + RAINBOW HOLD TUBE - GREEN TOP (08/07/2017 3:47 AM) + + + | Specimen | Performing Laboratory | + + + | Blood | [facility], [place] [address] | | | [place] [address] | + + + RAINBOW HOLD TUBE - BLUE TOP (08/07/2017 3:47 AM) + + + | Specimen | Performing Laboratory | + + + | Blood | [facility], [place] [address] | | | [place] [address] | + + + BLOOD BANK HOLD TUBE - [...] | + + + | Blood | [facility], TRANSFUSION MEDICINE [address] | | | [place] [address] | + + + LEW CARMEN (08/07/2017 [...] ------ RAINBOW HOLD | | TUBE - BLUE...[[id number]] Final | | result RAINBOW HOLD TUBE - | | GREE...[[id number]] Final | | result RAINBOW HOLD TUBE - | | PURP...[[id number]] Final | | result RAINBOW HOLD TUBE - RED | | TOP[[id number]] Final | | result Please view results for these tests on the | | individual orders. | + + CBC AND AUTO DIFF (08/07/2017 [...] | + + + | Blood | [facility], [facility] [address] | | | [place] [address] | + + + + + | [...] | + + + | Blood | [facility], [place] [address] [place] [address] | | | [place] [address] | + + + + + | Narrative | + + | INR Therapeutic ranges for full anticoagulation: INR for Venous | | Thromboembolism (2.0 - 3.0) INR INR for most patients with | | mech. valves (2.5 - 3.5) INR | + + TROPONIN I, PLASMA (08/07/2017 3:47 AM) + +-------+ + | Component | Value | Ref Range | + +-------+ + | TROPONIN I | 0.05 | <0.80 ng/mL | + +-------+ + + + + | Specimen | Performing Laboratory | + + + | Blood | [facility], [place] [address] [place] [address] | | | [place] [address] | + + + COMPLETE METABOLIC SET (NA,K,CL,CO2,BUN,CREAT,GLUC,CA,AST,ALT,BILI TOTAL,ALK PHOS,ALB,PROT TOTAL) (08/07/2017 3:47 AM) + + + + | Component | Value | Ref Range | + + + + | GLUCOSE, PLASMA | 82 | 70 - 99 mg/dL | | (LAB) | | | + + + + | BUN, PLASMA (LAB) | 64 (H) | 6 - 20 mg/dL | + + + + | CREATININE PLASMA | 12.00 (H) | 0.70 - 1.30 mg/dL | | (LAB) | | | + + + + | EGFR - | 5 (L) | >60 mL/min | | [place] | | | + + + + | EGFR NON | 4 (L) | >60 mL/min | | -[place] | | | + + + + | SODIUM, PLASMA (LAB) | 136 | 136 - 145 mmol/L | + + + + | POTASSIUM, PLASMA | 4.9 | 3.4 - 5.0 mmol/L | | (LAB) | | | + + + + | CHLORIDE, PLASMA | 95 (L) | 97 - 108 mmol/L | | (LAB) | | | + + + + | TOTAL CO2, PLASMA | 31 | 21 - 32 mmol/L | | (LAB) | | | + + + + | CALCIUM, PLASMA | 9.3 | 8.6 - 10.2 mg/dL | | (LAB) | | | + + + + | CALCIUM(ALB | 9.9 | 8.6 - 10.2 mg/dL | | CORRECTED) | | | + + + + | BILIRUBIN TOTAL | 0.5 | 0.3 - 1.2 mg/dL | + + + + | TOTAL PROTEIN, | 7.0 | 6.4 - 8.2 g/dL | | PLASMA (LAB) | | | + + + + | ALBUMIN, PLASMA | 3.2 (L) | 3.5 - 4.7 g/dL | | (LAB) | | | + + + + | ALK PHOS | 81 | 56 - 119 U/L | + + + + | AST(SGOT) | 10 | <=41 U/L | + + + + | ALT (SGPT) | 15 | <=60 U/L | + + + + | ANION GAP | 10 | 4 - 11 mmol/L | + + + + | ANION GAP(ALB | 12 (H) | 4 - 11 mmol/L | | CORRECTED) | | | + + + + | POTASSIUM CMNT | No Hemo | | + + + + | COTYI T CMNT | No Hemo | | + + + + | AST CMNT | No Hemo | | + + + + + + + | Specimen | Performing Laboratory | + + + | Blood | [facility], [place] [address] | | | [place] [address] | + + + + + | Narrative | + + | Adult glucose reference range change effective 712-17. GFR is estimated using the | | [...] Rapidly changing kidney function | + + CBC, WITH DIFFERENTIAL (08/07/2017 [...] | ------ CBC AND AUTO | | DIFF[[id number]] Abnormal Final | | result Please view results for these tests on the | | individual orders. | + + in this encounter Visit Diagnoses + + | Diagnosis | + + | Altered mental status, unspecified altered mental status type | + + | ESRD (end stage renal disease) (HCC) | + + | End stage renal disease | + + | Hydrocephalus | + + | Obstructive hydrocephalus | + + | Delirium | + + | Other alteration of consciousness | + + | Gait instability | + + | Abnormality of gait | + + | Hypertension | + + | Unspecified essential hypertension | + + | Hypertensive emergency | + + | Unspecified essential hypertension | + + | Epilepsy (HCC) | + + | Unspecified epilepsy without mention of intractable epilepsy | + + | MGUS (monoclonal gammopathy of unknown significance) | + + | Monoclonal paraproteinemia | + + | Anemia | + + | Anemia, unspecified | + + Admitting Diagnoses + + | Diagnosis | + + | Hydrocephalus | + + | Obstructive hydrocephalus | + + | ESRD (end stage renal disease) (HCC) | + + | End stage renal disease | + + | Altered mental status, unspecified altered mental status type | + + Administered Medications + +--------+ + +------+------+ | Medication Order | MAR | Action | Dose | Rate | Site | | | Action | Date | | | | + +--------+ + +------+------+ | acetaminophen (TYLENOL) tablet | Given | | 1,000 mg | | | | 1,000 mg 1,000 mg, oral, THREE | | 8 21:43 | | | | | TIMES DAILY, First dose on Cathryn | | PDT | | | | | 08/10/17 at 0900, Until | | | | | | | Discontinued | | | | | | + +--------+ + +------+------+ +-------+ + +---+---+ | Given | | 1,000 mg | | | | | 8 08:37 | | | | | | PDT | | | | +-------+ + +---+---+ | Given | | 1,000 mg | | | | | 8 16:59 | | | | | | PDT | | | | +-------+ + +---+---+ +---+---+ | | | +---+---+ + +-------+ +-------+---+---+ | amLODIPine (NORVASC) tablet 10 | Given | | 10 mg | | | | mg 10 mg, oral, DAILY, First | | 8 12:43 | | | | | dose on Mon08/07/17 at 0900, | | PDT | | | | | Until Discontinued | | | | | | + +-------+ +-------+---+---+ +---+---+ | | | +---+---+ + +-------+ +-------+---+---+ | amLODIPine (NORVASC) tablet 10 | Given | | 10 mg | | | | mg 10 mg, feeding tube, DAILY, | | 8 08:47 | | | | | First dose on Mon08/08/17 at | | PDT | | | | | 0900, Until Discontinued | | | | | | + +-------+ +-------+---+---+ +---+---+ | | | +---+---+ + +-------+ +-------+---+---+ | amLODIPine (NORVASC) tablet 10 | Given | | 10 mg | | | | mg 10 mg, oral, DAILY, First | | 8 10:00 | | | | | dose on Cathryn 08/10/17 at 0900, | | PDT | | | | | Until Discontinued | | | | | | + +-------+ +-------+---+---+ +-------+ +-------+---+---+ | Given | | 10 mg | | | | | 8 08:32 | | | | | | PDT | | | | +-------+ +-------+---+---+ + +---+ | | | + +---+ | bisacodyl (DULCOLAX) | | | suppository 10 mg 10 mg, rectal, | | | DAILY NEEDED, Starting Cathryn | | | 08/10/17 at 0615, Until Sat | | | 08/12/17 at 0038, 2nd line for no | | | BM in past 2 days OR if no | | | response to MIRALAX or if patient | | | unable to tolerate oral | | + +---+ | | | + +---+ + +-------+ + +---+---+ | calcium carbonate suspension | Given | | 500 mg | | | | 500 mg elemental 500 mg | | 8 08:47 | elementa | | | | elemental (1,250 mg total salt), | | PDT | l | | | | feeding tube, DAILY, First dose | | | | | | | on e 08/08/17 at 0945, Until | | | | | | | Discontinued | | | | | | + +-------+ + +---+---+ +---+---+ | | | +---+---+ + +-------+ + +---+---+ | calcium carbonate tablet 520 mg | Given | | 520 mg | | | | elemental 520 mg elemental, | | 8 12:50 | elementa | | | | oral, DAILY, First dose on Mon | | PDT | l | | | | 08/07/17 at 0945, Until | | | | | | | Discontinued | | | | | | + +-------+ + +---+---+ +---+---+ | | | +---+---+ + +-------+ + +---+---+ | calcium carbonate tablet 520 mg | Given | | 520 mg | | | | elemental 520 mg elemental, | | 8 10:00 | elementa | | | | oral, DAILY, First dose on Cathryn | | PDT | l | | | | 08/10/17 at 0900, Until | | | | | | | Discontinued | | | | | | + +-------+ + +---+---+ +-------+ + +---+---+ | Given | | 520 mg | | | | | 8 08:36 | elementa | | | | | PDT | l | | | +-------+ + +---+---+ +---+---+ | | | +---+---+ + +-------+ + +---+---+ | carvedilol (COREG) tablet 3.125 | Given | | 3.125 mg | | | | mg 3.125 mg, oral, TWICE DAILY | | 8 12:50 | | | | | WITH MEALS, First dose on Mon | | PDT | | | | | 08/07/17 at 0730, Until | | | | | | | Discontinued | | | | | | + +-------+ + +---+---+ +---+---+ | | | +---+---+ + +-------+ + +---+---+ | carvedilol (COREG) tablet 3.125 | Given | | 3.125 mg | | | | mg 3.125 mg, feeding tube, | | 8 20:33 | | | | | TWICE DAILY WITH MEALS, First | | PDT | | | | | dose on Mon08/07/17 at 1700, | | | | | | | Until Discontinued | | | | | | + +-------+ + +---+---+ +-------+ + +---+---+ | Given | | 3.125 mg | | | | | 8 08:48 | | | | | | PDT | | | | +-------+ + +---+---+ | Given | | 3.125 mg | | | | | 8 17:53 | | | | | | PDT | | | | +-------+ + +---+---+ +---+---+ | | | +---+---+ + +-------+ + +---+---+ | carvedilol (COREG) tablet 3.125 | Given | | 3.125 mg | | | | mg 3.125 mg, oral, TWICE DAILY | | 8 20:57 | | | | | WITH MEALS, First dose on Mon | | PDT | | | | | 08/09/17 at 1945, Until | | | | | | | Discontinued | | | | | | + +-------+ + +---+---+ +-------+ + +---+---+ | Given | | 3.125 mg | | | | | 8 09:59 | | | | | | PDT | | | | +-------+ + +---+---+ +---+---+ | | | +---+---+ + +-------+ +---------+---+---+ | carvedilol (COREG) tablet 6.25 | Given | | 6.25 mg | | | | mg 6.25 mg, oral, TWICE DAILY | | 8 17:56 | | | | | WITH MEALS, First dose on [facility] | | PDT | | | | | 08/10/17 at 1700, Until | | | | | | | Discontinued | | | | | | + +-------+ +---------+---+---+ +-------+ +---------+---+---+ | Given | | 6.25 mg | | | | | 8 08:32 | | | | | | PDT | | | | +-------+ +---------+---+---+ | Given | | 6.25 mg | | | | | 8 16:59 | | | | | | PDT | | | | +-------+ +---------+---+---+ +---+---+ | | | +---+---+ + +-------+ +--------+---+---+ | cholecalciferol (Vitamin D3) | Given | | 5,000 | | | | (VITAMIN D-3) tablet 5,000 Units | | 8 12:42 | Units | | | | 5,000 Units, oral, DAILY, First | | PDT | | | | | dose on Mon08/07/17 at 0900, | | | | | | | Until Discontinued | | | | | | + +-------+ +--------+---+---+ +---+---+ | | | +---+---+ + +-------+ +--------+---+---+ | cholecalciferol (Vitamin D3) | Given | | 5,000 | | | | (VITAMIN D-3) tablet 5,000 Units | | 8 08:47 | Units | | | | 5,000 Units, feeding tube, | | PDT | | | | | DAILY, First dose on Mon08/08/17 | | | | | | | at 0900, Until Discontinued | | | | | | + +-------+ +--------+---+---+ +---+---+ | | | +---+---+ + +-------+ +--------+---+---+ | cholecalciferol (Vitamin D3) | Given | | 5,000 | | | | (VITAMIN D-3) tablet 5,000 Units | | 8 09:59 | Units | | | | 5,000 Units, oral, DAILY, First | | PDT | | | | | dose on Mon08/10/17 at 0900, | | | | | | | Until Discontinued | | | | | | + +-------+ +--------+---+---+ +-------+ +--------+---+---+ | Given | | 5,000 | | | | | 8 08:37 | Units | | | | | PDT | | | | +-------+ +--------+---+---+ +---+---+ | | | +---+---+ + +-------+ +--------+---+---------+ | heparin injection 5,000 Units | Given | | 5,000 | | Abdomen | | 5,000 Units, subcutaneous, EVERY | | 8 21:43 | Units | | | | 8 HOURS, First dose on Mon | | PDT | | | | | 08/08/17 at 2200, Until | | | | | | | Discontinued | | | | | | + +-------+ +--------+---+---------+ +-------+ +--------+---+---------+ | Given | | 5,000 | | Abdomen | | | 8 08:46 | Units | | | | | PDT | | | | +-------+ +--------+---+---------+ | Given | | 5,000 | | Abdomen | | | 8 16:59 | Units | | | | | PDT | | | | +-------+ +--------+---+---------+ +---+---+ | | | +---+---+ + +-------+ +--------+---+---------+ | influenza high-dose vaccine | Given | | 0.5 mL | | Left | | (FLUZONE HIGH-DOSE) (PF) IM | | 8 17:58 | | | Deltoid | | injection (age 65 years or | | PDT | | | | | greater) 0.5 mL 0.5 mL, | | | | | | | intramuscular, DAY OF DISCHARGE, | | | | | | | 1 dose, Starting Mon08/11/17 at | | | | | | | 1750, Until Mon08/11/17 at 1758, | | | | | | | flu vaccination per delegation | | | | | | | protocol | | | | | | + +-------+ +--------+---+---------+ +---+---+ | | | +---+---+ + +-------+ + +---+---+ | levETIRAcetam (KEPPRA) liquid | Given | | 1,000 mg | | | | 1,000 mg 1,000 mg, feeding tube, | | 8 21:14 | | | | | TWICE DAILY, First dose on Mon | | PDT | | | | | 08/08/17 at 2100, Until | | | | | | | Discontinued | | | | | | + +-------+ + +---+---+ +-------+ + +---+---+ | Given | | 1,000 mg | | | | | 8 09:14 | | | | | | PDT | | | | +-------+ + +---+---+ +---+---+ | | | +---+---+ + +-------+ + +---+---+ | levETIRAcetam (KEPPRA) tablet | Given | | 1,000 mg | | | | 1,000 mg 1,000 mg, oral, TWICE | | 8 12:43 | | | | | DAILY, First dose on Mon08/07/17 | | PDT | | | | | at 0900, Until Discontinued | | | | | | + +-------+ + +---+---+ +---+---+ | | | +---+---+ + +-------+ + +---+---+ | levETIRAcetam (KEPPRA) tablet | Given | | 1,000 mg | | | | 1,000 mg 1,000 mg, feeding tube, | | 8 20:33 | | | | | TWICE DAILY, First dose on Mon | | PDT | | | | | 08/07/17 at 2100, Until | | | | | | | Discontinued | | | | | | + +-------+ + +---+---+ +-------+ + +---+---+ | Given | | 1,000 mg | | | | | 8 08:48 | | | | | | PDT | | | | +-------+ + +---+---+ +---+---+ | | | +---+---+ + +-------+ + +---+---+ | levETIRAcetam (KEPPRA) tablet | Given | | 1,000 mg | | | | 1,000 mg 1,000 mg, oral, TWICE | | 8 10:00 | | | | | DAILY, First dose on Mon08/09/17 | | PDT | | | | | at 2100, Until Discontinued | | | | | | + +-------+ + +---+---+ +-------+ + +---+---+ | Given | | 1,000 mg | | | | | 8 21:43 | | | | | | PDT | | | | +-------+ + +---+---+ | Given | | 1,000 mg | | | | | 8 08:32 | | | | | | PDT | | | | +-------+ + +---+---+ +---+---+ | | | +---+---+ + +-------+ +-------+---+---+ | lisinopril (PRINIVIL) tablet 20 | Given | | 20 mg | | | | mg 20 mg, oral, DAILY, First | | 8 12:43 | | | | | dose on Mon08/07/17 at 0900, | | PDT | | | | | Until Discontinued | | | | | | + +-------+ +-------+---+---+ +---+---+ | | | +---+---+ + +-------+ +-------+---+---+ | lisinopril (PRINIVIL) tablet 20 | Given | | 20 mg | | | | mg 20 mg, feeding tube, DAILY, | | 8 08:47 | | | | | First dose on Mon08/08/17 at | | PDT | | | | | 0900, Until Discontinued | | | | | | + +-------+ +-------+---+---+ +---+---+ | | | +---+---+ + +-------+ +-------+---+---+ | lisinopril (PRINIVIL) tablet 20 | Given | | 20 mg | | | | mg 20 mg, oral, DAILY, First | | 8 10:00 | | | | | dose on [facility] 08/10/17 at 0900, | | PDT | | | | | Until Discontinued | | | | | | + +-------+ +-------+---+---+ +-------+ +-------+---+---+ | Given | | 20 mg | | | | | 8 08:32 | | | | | | PDT | | | | +-------+ +-------+---+---+ +---+---+ | | | +---+---+ + +-------+ +------+---+---+ | polyethylene glycol (MIRALAX) | Given | | 17 g | | | | packet 17 g 17 g, oral, DAILY, | | 8 08:38 | | | | | First dose on [facility] 08/10/17 at | | PDT | | | | | 0900, Until Discontinued | | | | | | + +-------+ +------+---+---+ + +---+ | | | + +---+ | polyethylene glycol (MIRALAX) | | | packet 34 g 34 g, oral, THREE | | | TIMES DAILY NEEDED, Starting | | | [facility]ryn 08/10/17 at 0615, Until Sat | | | 08/12/17 at 0038, 1st line - for | | | no BM for 2 days | | + +---+ | | | + +---+ + +-------+ +---------+---+---+ | senna-docusate (SENOKOT S) | Given | | 2 | | | | 8.6-50 mg 2 tablet 2 tablet, | | 8 21:43 | tablets | | | | oral, TWICE DAILY, First dose on | | PDT | | | | | [facility] 08/10/17 at 0900, Until | | | | | | | Discontinued | | | | | | + +-------+ +---------+---+---+ +-------+ +---------+---+---+ | Given | | 2 | | | | | 8 08:37 | tablets | | | | | PDT | | | | +-------+ +---------+---+---+ +---+---+ | | | +---+---+ + +-------+ + +---+---+ | sevelamer HCl (RENAGEL) tablet | Given | | 1,600 mg | | | | 1,600 mg 1,600 mg, oral, THREE | | 8 13:38 | | | | | TIMES DAILY WITH MEALS, First | | PDT | | | | | dose on Mon08/10/17 at 1400, | | | | | | | Until Discontinued | | | | | | + +-------+ + +---+---+ +-------+ + +---+---+ | Given | | 1,600 mg | | | | | 8 17:56 | | | | | | PDT | | | | +-------+ + +---+---+ | Given | | 1,600 mg | | | | | 8 08:32 | | | | | | PDT | | | | +-------+ + +---+---+ +---+---+ | | | +---+---+ + +-------+ +--------+---+---+ | sevelamer HCl (RENAGEL) tablet | Given | | 800 mg | | | | 800 mg 800 mg, oral, THREE TIMES | | 8 12:35 | | | | | DAILY WITH MEALS, First dose on | | PDT | | | | | 08/09/17 at 0915, Until | | | | | | | Discontinued | | | | | | + +-------+ +--------+---+---+ +-------+ +--------+---+---+ | Given | | 800 mg | | | | | 8 19:02 | | | | | | PDT | | | | +-------+ +--------+---+---+ | Given | | 800 mg | | | | | 8 09:59 | | | | | | PDT | | | | +-------+ +--------+---+---+ +---+---+ | | | +---+---+ + +-------+ +--------+---+---+ | sevelamer HCl 50 mg/mL | Given | | 800 mg | | | | suspension (compound) 800 mg 800 | | 8 10:58 | | | | | mg, feeding tube, THREE TIMES | | PDT | | | | | DAILY WITH MEALS, First dose on | | | | | | | 08/07/17 at 1715, Until | | | | | | | Discontinued | | | | | | + +-------+ +--------+---+---+ +-------+ +--------+---+---+ | Given | | 800 mg | | | | | 8 13:11 | | | | | | PDT | | | | +-------+ +--------+---+---+ | Given | | 800 mg | | | | | 8 17:53 | | | | | | PDT | | | | +-------+ +--------+---+---+ +---+---+ | | | +---+---+ + +-------+ +--------+---+---+ | tamsulosin (FLOMAX) capsule 0.4 | Given | | 0.4 mg | | | | mg 0.4 mg, feeding tube, DAILY, | | 8 20:35 | | | | | First dose on Mon08/07/17 at | | PDT | | | | | 1715, Until Discontinued | | | | | | + +-------+ +--------+---+---+ +---+---+ | | | +---+---+ + +-------+ +--------+---+---+ | thiamine tablet 100 mg 100 mg, | Given | | 100 mg | | | | oral, DAILY, First dose on Mon | | 8 19:01 | | | | | 08/09/17 at 1500, Until | | PDT | | | | | Discontinued | | | | | | + +-------+ +--------+---+---+ +-------+ +--------+---+---+ | Given | | 100 mg | | | | | 8 09:59 | | | | | | PDT | | | | +-------+ +--------+---+---+ | Given | | 100 mg | | | | | 8 08:37 | | | | | | PDT | | | | +-------+ +--------+---+---+ +---+---+ | | | +---+---+ + +-------+ +-------+---+---+ | torsemide (DEMADEX) tablet 50 | Given | | 50 mg | | | | mg 50 mg, oral, DAILY, First | | 8 12:50 | | | | | dose on Mon08/07/17 at 0900, | | PDT | | | | | Until Discontinued | | | | | | + +-------+ +-------+---+---+ +---+---+ | | | +---+---+ + +-------+ +-------+---+---+ | torsemide (DEMADEX) tablet 50 | Given | | 50 mg | | | | mg 50 mg, feeding tube, DAILY, | | 8 08:46 | | | | | First dose on Mon08/08/17 at | | PDT | | | | | 0900, Until Discontinued | | | | | | + +-------+ +-------+---+---+ +---+---+ | | | +---+---+ + +-------+ +-------+---+---+ | torsemide (DEMADEX) tablet 50 | Given | | 50 mg | | | | mg 50 mg, oral, DAILY, First | | 8 11:49 | | | | | dose on [facility] 08/10/17 at 0900, | | PDT | | | | | Until Discontinued | | | | | | + +-------+ +-------+---+---+ +---+---+ | | | +---+---+ in this encounter
--- OUTSIDE RECORDS SUMMARY | ~2017-08-26 | XMS | Encounter Summary ---
Demographics + + + | Address | [address] | | | [place] [address] | + + + | Home Phone | | + + + | Preferred Language | Unknown | + + + | Marital Status | Single | + + + | Jewish Affiliation | 1027 | + + + | Race | Unknown | + + + | Ethnic Group | Unknown | + + + Author + + + | Author | [facility] | + + + | Organization | [facility] | + + + | Address | Unknown | + + + | Phone | Unavailable | + + + Support + + +---------+ + | Name | Relationship | Address | Phone | + + +---------+ + | Bharti Moses | ECON | Unknown | | + + +---------+ + Care Team Providers + +------+ + | Care Packager And Strapper Name | Role | Phone | + +------+ + | Wilber Mcgee DO | PCP | | + +------+ + Reason for Visit +--------+ + | Reason | Comments | +--------+ + | Other | June 2017-[facility] | +--------+ + Encounter Details +--------+ + + + + | Date | Type | Department | Care Team | Description | +--------+ + + + + | 08/07/ | Documentati | [facility] | Aayush Burr MD | Other (June | | 2017 | on Only | Nephrology [address] | [address] | [facility] | | | | [place] [address] | [address], [place] | [facility] | | | | [place], [place] | [address] | Note) | | | | [id number] | | | | | | [phone] | | | +--------+ + + + [...]
--- OUTSIDE RECORDS SUMMARY | ~2017-08-26 | XMS | Clinical Summary ---
Demographics + + + | Address | [address] | | | [place] [address] | + + + | Home Phone [...] + + + | Author | [facility] | + + + | Organization | [facility] | + + + | Address | Unknown | + + + | Phone | Unavailable | + + + Support + + +---------+ + | Name | Relationship | Address | Phone | + + +---------+ + | Bharti Moses | ECON | Unknown | | + + +---------+ + Care Team Providers + +------+ + | Care Qa Reviewer Name | Role | Phone | + +------+ + | Wilber Dodd DO | PP | | + +------+ + Allergies No Known Allergies Current Medications + + + +---------+------+------+-------+ | Prescription | Sig. | Disp. | Refills | Star | End | Statu | | | | | | t | Date | s | | | | | | Date | | | + + + +---------+------+------+-------+ | alfuzosin | Take 10 mg by mouth | | | | | Activ | | (UROXATRAL) 10 MG 24 | every morning. | | | | | e | | hr | Indications: | | | | | | | tabletIndications: | urethral instability | | | | | | | urethral instability | | | | | | | + + + +---------+------+------+-------+ | lisinopril | Take 20 mg by mouth | | | | | Activ | | (ZESTRIL) 20 MG | every morning. | | | | | e | | tabletIndications: | Indications: High | | | | | | | Hypertension | Blood Pressure | | | | | | + + + +---------+------+------+-------+ | levetiracetam | Take 1,000 mg by | | | | | Activ | | (KEPPRA) 1000 MG | mouth 2 (two) times | | | | | e | | tabletIndications: | daily. Indications: | | | | | | | "other convulsions" | "other convulsions" | | | | | | + + + +---------+------+------+-------+ | bisacodyl | Place 10 mg rectally | | | | | Activ | | (BISCOLAX) 10 MG | as needed. | | | | | e | | suppositoryIndicatio | Indications: | | | | | | | ns: Constipation | Constipation | | | | | | + + + +---------+------+------+-------+ | ondansetron | Take 4 mg by mouth | | | | | Activ | | (ZOFRAN) 4 MG tablet | every 6 (six) hours | | | | | e | | | as needed for | | | | | | | | Nausea. | | | | | | + + + +---------+------+------+-------+ | amLODIPine | Take 1 tablet by | 30 | 0 | 08/1 | | Activ | | (NORVASC) 10 MG | mouth daily. | tablet | | 9/20 | | e | | tablet | | | | 15 | | | + + + +---------+------+------+-------+ | carvedilol (COREG) | Take 1 tablet by | 60 | 0 | 08/1 | | Activ | | 3.125 MG tablet | mouth 2 (two) times | tablet | | 9/20 | | e | | | daily with meals. | | | 15 | | | + + + +---------+------+------+-------+ | epoetin niharika | Inject 1 mL into the | 1 Dose | 3 | 08/1 | | Activ | | (PROCRIT) 40801 | skin every 7 days. | | | 9/20 | | e | | UNIT/ML | Indications: Anemia | | | 15 | | | | injectionIndications | | | | | | | | : Anemia | | | | | | | + + + +---------+------+------+-------+ | sevelamer | Take 2 tablets by | 180 | 0 | 08/1 | | Activ | | (RENVELA) 800 MG | mouth 3 (three) | tablet | | 9/20 | | e | | tablet | times daily with | | | 15 | | | | | meals. | | | | | | + + + +---------+------+------+-------+ | torsemide | Take 1 tablet by | 60 | 0 | 08/1 | | Activ | | (DEMADEX) 100 MG | mouth Two times | tablet | | 9/20 | | e | | tablet | daily. | | | 15 | | | + + + +---------+------+------+-------+ | calcium carbonate | Take 600 mg by mouth | | | | | Activ | | (OS-LATRICIA) 600 MG TABS | daily. Taking 2 | | | | | e | | | tablets every | | | | | | | | morning. | | | | | | + + + +---------+------+------+-------+ | acetaminophen | Take 325 mg by mouth | | | | | Activ | | (TYLENOL) 325 MG | every 4 (four) | | | | | e | | tablet | hours as needed for | | | | | | | | Pain. | | | | | | + + + +---------+------+------+-------+ | mupirocin | Apply topically 3 | | | | | Activ | | (BACTROBAN) 2 % | (three) times daily. | | | | | e | | ointment | | | | | | | + + + +---------+------+------+-------+ | cloNIDine | Take 0.1 mg by mouth | | | | | Activ | | (CATAPRES) 0.1 MG | as needed (every 8 | | | | | e | | tablet | hrs PRN for SBAP | | | | | | | | over 200 . Recheck). | | | | | | + + + +---------+------+------+-------+ | cholecalciferol | Take 1,000 Units by | | | | | Activ | | 72604 units CAPS | mouth daily. | | | | | e | + + + +---------+------+------+-------+ | polyethylene | Take 17 g by mouth | | | | | Activ | | glycol (GLYCOLAX) | daily. | | | | | e | | packet | | | | | | | + + + +---------+------+------+-------+ | verapamil (CALAN) | Take 120 mg by mouth | | | | | Activ | | 120 MG tablet | 3 (three) times | | | | | e | | | daily. | | | | | | + + + +---------+------+------+-------+ Active Problems + + + | Problem | Noted Date | + + + | ESRD (end stage renal disease) | 03/12/2015 | + + + | Nephrotic syndrome with unspecified pathological lesion in kidney | 12/01/2014 | + + + | Monoclonal gammopathy | 12/01/2014 | + + + | Acute on chronic renal failure | 12/01/2014 | + + + | Anemia of chronic renal failure, stage 4 (severe) (HCC) | 11/30/2014 | + + + | Essential hypertension | 11/29/2014 | + + + | Hypoalbuminemia | 11/29/2014 | + + + | Proteinuria | 11/29/2014 | + + + | Obesity, unspecified | 11/27/2014 | + + + | Seizure disorder (HCC) | 11/27/2014 | + + + | Head injury | 11/27/2014 | + + + Resolved Problems + + + + | Problem | Noted | Resolved | | | Date | Date | + + + + | Hypokalemia | 11/30/19 | | | | 15 | 5 | + + + + | Hyperphosphatemia | 11/30/19 | | | | 15 | 5 | + + + + | Leg edema | 11/28/19 | | | | 15 | 5 | + + + + | Diastolic CHF | 11/28/19 | | | | 15 | 5 | + + + + | Syncope and collapse | 11/28/19 | | | | 15 | 5 | + + + + | Urinary incontinence | 11/28/19 | | | | 15 | 5 | + + + + Encounters +--------+ + + + + | Date | Type | Specialty | Care Team | Description | +--------+ + + + + | 08/22/ | Documentati | | Aayush Burr MD | Other (July | | 2017 | on Only | | | 2017-[facility] | | | | | | [facility] | | | | | | Note) | +--------+ + + + + | 08/07/ | Documentati | | Aayush Burr MD | Other (June | | 2017 | on Only | | | 2018-[facility] | | | | | | [facility] | | | | | | Note) | +--------+ + + + + | 08/06/ | Documentati | | Warren Matos MD | Other (CT HEAD/ XR | | 2017 | on Only | | | CHEST, DR. PARKER, | | | | | | [facility] ) | +--------+ + + + + | 07/25/ | Documentati | | Warren Matos MD | Other (DR. PABLO | 2017 | on Only | | | [facility] ) | +--------+ + + + + | 06/28/ | Documentati | | Aayush Burr MD | Other (May | on Only | | | 2017-[facility] | | | | | | [facility] | | | | | | Note) | +--------+ + + + + | 05/29/ | Documentati | | Aayush Burr MD | Other (April | 2017 | on Only | | | 2017-[facility] | | | | | | [facility] | | | | | | Note) | +--------+ + + + + from Last 3 Months Family History + + +------+ + | Medical History | Relation | Name | Comments | + + +------+ + | Alzheimer's disease | Mother | | | + + +------+ + | Congestive Heart | Mother | | | | Failure | | | | + + +------+ + | Cancer | Sister | | Uterine cancer | + + +------+ + | Cancer | Sister | | stomach cancer | + + +------+ + + +------+ + + | Relation | Name | Status | Comments | + +------+ + + | Brother | | Alive | | + +------+ + + | Father | | | | + +------+ + + | Mother | | | | + +------+ + + | Sister | | | | + +------+ + + | Sister | | | | + +------+ + + Social History + +-------+ +--------+------+ [...] + + + | Blood Pressure | 126/70 | 08/01/2016 10:06 AM PDT | + + + + | Pulse | 68 | 08/01/2016 10:06 AM PDT | + + + + | Temperature | 36.2 C (97.2 F) | 08/01/2016 10:06 AM PDT | + + + + | Respiratory Rate | 16 | 08/01/2016 10:06 AM PDT | + + + + | Oxygen Saturation | 97% | 08/01/2016 10:06 AM PDT | + + + + | Inhaled Oxygen | - | - | | Concentration | | | + + + + | Weight | 74.4 kg (164 lb 1.3 | 08/01/2016 10:06 AM PDT | | | oz) | | + + + + | Height | 167.6 cm (5' 6") | 08/01/2016 10:06 AM PDT | + + + + | Body Mass Index | 26.48 | 08/01/2016 10:06 AM PDT | + + + + Plan of Treatment + + + + + | Health Maintenance | Due Date | Last Done | Comments | + + + + + | Vaccine: | | | | | Dtap/Tdap/Td (1 - | 9 | | | | Tdap) | | | | + + + + + | Colon Cancer | | | | | Screening | 0 | | | | (Colonoscopy) | | | | + + + + + | Vaccine: | | | | | Pneumococcal 65+ | 5 | | | | High/Highest Risk (1 | | | | | of 2 - PCV13) | | | | + + + + + | Vaccine: Influenza | | | | | (Season Ended) | 8 | | | + + + + + Implants + +--------+--------+ +--------+--------+--------+ | Implanted | Type | Area | Manufacture | Device | Expira | Model | | | | | r | | tion | / | | | | | | Identi | Date | Serial | | | | | | fier | | / Lot | + +--------+--------+ +--------+--------+--------+ | Palindrome-01/19/2015Implanted | Cathet | Right: | COVIDIEN | | 09/07/ | [id number] | | : Qty: 1 on 01/19/2015 by | er | Chest | | | 2020 | [id number] | | Joaquim James MD | | | | | | / | | | | | | | | /[id number] | | | | | | | | [id number] | + +--------+--------+ +--------+--------+--------+ Results Not on filefrom Last 3 Months Insurance + +--------+ +------+-------+ + | Payer | Benefi | Subscriber | Type | Phone | Address | | | t Plan | ID | | | | | | / | | | | | | | Group | | | | | + +--------+ +------+-------+ + | MEDICARE | MEDICA | xxxxxxxxxx | | | [address] | | | RE | | | | [place] [phone] | | | IP-OP | | | | | + +--------+ +------+-------+ + | MEDICAID | MEDICA | xxxxxxxx | | | [address] | | | ID | | | | [place] | | | [place] | | | | [id number] | + +--------+ +------+-------+ + + +--------+ +--------+ + + | Guarantor Name | Accoun | Relation to | Date | Phone | Billing Address | | | t Type | Patient | of | | | | | | | | | | + +--------+ +--------+ + + | MEERA VIZCAINO | Person | Self [birth year] Home: | [address] | | | al/Fam | | [phone] | [phone] [place] | | | [place] | | [phone] | + +--------+ +--------+ + +
--- OUTSIDE RECORDS SUMMARY | ~2017-08-26 | XMS | Clinical Summary ---
Demographics + + + | Address | [address] | | | [place] [address] | + + + | Home Phone | | + + + | Preferred Language | Unknown | + + + | Marital Status | Single | + + + | Islam Affiliation | 1027 | + + + | Race | Unknown | + + + | Ethnic Group | Unknown | + + + Author + + + | Author | [facility] | + + + | Organization | [facility] | + + + | Address | Unknown | + + + | Phone | Unavailable | + + + Support + + +---------+ + | Name | Relationship | Address | Phone | + + +---------+ + | Bharti Moses | ECON | Unknown | | + + +---------+ + Care Team Providers + +------+ + | Care Print Journalist Name | Role | Phone | + [...] 08/1 | | Activ | | (PROCRIT) 12861 | skin every 7 days. | | [...] | | | | Activ | | 63224 units CAPS | mouth daily. | | [...] Right: | COVIDIEN | | 09/07/ | [id number] | | : Qty: 1 on 01/19/2015 by | er | Chest | | | 2020 | [id number] | | Joaquim James MD | | | | | | / | | | | | | | | /[address] | | | | | | | | [address] | + +--------+--------+ +--------+--------+--------+ Results Not on [...] RE | | | | [place] [address] | | | IP-OP | | | | | + +--------+ +------+-------+ + | MEDICAID | MEDICA | xxxxxxxx | | | [address] | | | ID | | | | [place] | | | [place] | | | | [address] | + +--------+ +------+-------+ + + +--------+ [...] | | | corrina | | | 6944 | [address] | + +--------+ +--------+ + +
--- OUTSIDE RECORDS SUMMARY | ~2017-08-26 | XMS | Clinical Summary ---
Demographics + + + | Address | [address] | | | [place] [address] | + + + | Home Phone | | + + + | Preferred Language | Unknown | + + + | Marital Status | Single | + + + | Gnosticist Affiliation | NRP | + + + [...] | | | | | [place] [address] | | + + + + + | Florentin Vega | ECON | Unknown | | + + + + + Care Team Providers + +------+ + | Care Rn Birthing Name | Role | Phone | + +------+ + | Wilber Mcgee DO | PP | | + +------+ + Source Comments [facility]BHASH is fully live on both [facility] and [facility]Patient.[facility] Allergies No Known Allergies Current Medications + [...] | | | original.[place] | | | [facility] | | | & Science | | | Burton | | | Discharge | | | [...] | SR 10 mg | | | [id number] | | | y known as: | [...] | | | (503) | | | [phone] | | | and ask the | | | reheat furnace operator | | | to page the [...] | | ask the | | | reheat furnace operator to | | | page the | | | physician | | | contracts law professor for | | | the | | [...] | | | [facility] | | | Parks | | | Terrace | | | Selected | | | Intermediat | | | e Care | | | Facility | | | [address], | | | [place] | | | [place] [address] | | | [phone] | | | [...] | | n [place] | | | [phone] | | | [phone] | | | Contact | | | information | | | for | | | after-disch | | | arge care | | | Discharge | | | Destination | | | [facility] | | | | | | Parks | | | Terrace . | | | Specialty: | | | | | | Intermediat | | | e Care | | | FacilityCon | | | tact | | | information | | | [address] | | | [address] | | | on [place] | | | [phone] | | | [phone] | | | [...] | | | oriented | | | r5Hyvgb: | | | JVP at 10 | [...] | + + + | Blood | [facility], CORE [address] [place] [address] | | | [place] [address] | + + + LEVETIRACETAM (KEPPRA), SERUM [...] | + + + | Blood | [address] | | | [address] | + + + RENAL FUNCTION SET [...] 9 (L) | >60 mL/min | | GREEK | | | + + + + | EGFR NON | 7 (L) | >60 mL/min | | -GREEK | | | + + + + [...] | + + + | Blood | [facility], CORE [address] | | | [place] [address] | + + + + + | [...] | | ------ CBC (HEMOGRAM) | | ONLY[[id number]] Abnormal Final | | result Please view [...] | + + + | Blood | [facility], CORE [address] | | | [place] [address] | + + + + + | Narrative | + + | TSH reference ranges are influenced by a variety of environmental influences, age, | | gender and ethnicity. The supplied reference limits are based on published values | | utilizing a similar TSH assay, and should be interpreted with caution. | + + CULTURE, BLOOD BACTI & YEAST [facility] (08/09/2017 3:41 PM)Only the most recent of [...] + + | Blood - Antecubital | [facility], CORE [address] | | - left | [place], [place] [address] | + + + LAB OTHER (08/09/2017 [...] REFERRAL LAB NAME | Test performed by [address] | | | | [place], [place] | | | | [address] | | | | [email or web address] | | | | [email or web address] | | | | | | | [...] ------ CULTURE, BLOOD | | BACTI & Y...[[id number]] Final | | result Please view results [...] | + + + | Blood | [facility], CORE [address] | | | [place] [address] | + + + COMPLETE METABOLIC SET [...] 6 (L) | >60 mL/min | | GREEK | | | + + + + | EGFR NON | 5 (L) | >60 mL/min | | -GREEK | | | + + + + [...] | + + + | Blood | [facility], CORE [address] [place] [address] | | | [place] [address] | + + + + + | [...] | + + + | Blood | [facility], CORE [address] | | | [place] [address] | + + + + + | Narrative | + + | Reference range change effective 12/06/16. | + + EEG CONTINUOUS, ADULT (08/08/2017 10:26 AM) + + | Narrative | + + | Patient Name: Andry Vega Date of : 1950 Medical Record | | Number: [id number] Date of Test: 08/08/2017 Place of Service: [facility] [phone] - | | [id number] [facility] Department: EEG [facility] - [id number] CARE HOME VIDEO EEG Start | | Date/Time: 08/07/2017 [...] normal sinus rhythm. 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: 1) Frequent [...] | | Signed: 08/08/2017 Tanika Isbell MD [employer] Co[employer] Machine Tender, Neurology/Epilepsy | | Billing/Coding: | | Provider: Tanika Isbell MD Date: 08/07/17 Suggested Modifier: GC - Resident Present | | Suggested CPT: 42383 - EEG Extended (1 - 6 hours) [...] | + + + | Blood | [facility], CORE [address] | | | [place] [address] | + + + HEPATITIS B SURFACE [...] | + + + | Blood | [facility], CORE [address] | | | [place] [address] | + + + EEG ROUTINE (08/07/2017 12:49 PM) + + | Narrative | + + | Patient Name: Andry Vega Date of : 1950 Medical Record | | Number: [id number] Date of Test: 08/07/2017 Place of Service: [facility] [phone] - | | [id number] [facility] Department: EEG [facility] - [id number] ROUTINE EEG Indications: Evaluate | | for [...] to the | | consult neurology service. senior living EEG to follow. Bernabe Jackson, DO Epilepsy | | Fellow [facility] NEUROLOGY ATTENDING ATTESTATION I | | independently reviewed the EEG record, edited the report as necessary, and agree with | | the fellow's interpretation as documented. Date of Service: 08/07/2017 Tanika Fox | | MD Sukhi [employer]ender, Neurology/Epilepsy | | Billing/Coding: | | Provider: Tanika Isbell MD Date: 08/07/17 Suggested Modifier: GC - Resident Present | | Suggested CPT: 06446 - EEG Asleep Only Suggested Dx: G93.49 Other encephalopathy | + + X-RAY PORTABLE CHEST 1 VIEW (08/07/2017 4:44 AM) + + + | Specimen | Performing Laboratory | + + + | | enStage RADIOLOGY VOICE RECOGNITION | + + + + + | Narrative | + + | STUDY: IN CHEST 1 VIEW HISTORY: Altered mental status [...] Interface - 08/07/2017 8:04 AM PDT STUDY: IN CHEST 1 | | VIEWHISTORY: Altered mental [...] Laboratory | + + + | | [facility] [address] | | | [place] [address] | + + + ED BG-LAC,POC (08/07/2017 [...] Laboratory | + + + | | [facility] [address] | | | [place] [address] | + + + RAINBOW HOLD TUBE - RED TOP (08/07/2017 3:47 AM) + + + | Specimen | Performing Laboratory | + + + | Blood | [facility], CORE [address] | | | [place] [address] | + + + RAINBOW HOLD TUBE - PURPLE TOP (08/07/2017 3:47 AM) + + + | Specimen | Performing Laboratory | + + + | Blood | [facility], CORE [address] | | | [place] [address] | + + + RAINBOW HOLD TUBE - GREEN TOP (08/07/2017 3:47 AM) + + + | Specimen | Performing Laboratory | + + + | Blood | [facility], CORE [address] | | | [place] [address] | + + + RAINBOW HOLD TUBE - BLUE TOP (08/07/2017 3:47 AM) + + + | Specimen | Performing Laboratory | + + + | Blood | [facility], CORE [address] | | | [place] [address] | + + + LEW CARMEN (08/07/2017 [...] ------ RAINBOW HOLD | | TUBE - BLUE...[[id number]] Final | | result RAINBOW HOLD TUBE - | | GREE...[[id number]] Final | | result RAINBOW HOLD TUBE - | | PURP...[[id number]] Final | | result RAINBOW HOLD TUBE - RED | | TOP[[id number]] Final | | result Please view results [...] | + + + | Blood | [facility], TRANSFUSION MEDICINE [address] | | | [place] [address] | + + + CBC AND AUTO [...] | + + + | Blood | [facility], CORE [address] | | | [place] [address] | + + + + + | [...] | + + + | Blood | [facility], CORE [address] | | | [place] [address] | + + + + + | [...] | ------ CBC AND AUTO | | DIFF[[id number]] Abnormal Final | | result Please view [...] | + + + | Blood | [facility], CORE [address] | | | [place] [address] | + + + from Last 3 Months
--- OUTSIDE RECORDS SUMMARY | ~2017-08-26 | XMS | Encounter Summary ---
Demographics + + + | Address | [address] | | | [place] [address] | + + + | Home Phone | | + + + | Preferred Language | Unknown | + + + | Marital Status | Single | + + + | Baptism Affiliation | 1027 | + + + | Race | Unknown | + + + | Ethnic Group | Unknown | + + + Author + + + | Author | [facility] | + + + | Organization | [facility] | + + + | Address | Unknown | + + + | Phone | Unavailable | + + + Support + + +---------+ + | Name | Relationship | Address | Phone | + + +---------+ + | Bharti Moses | ECON | Unknown | | + + +---------+ + Care Team Providers + +------+ + | Care Provider Relations Manager Name | Role | Phone | [...] + + | 08/07/ | Documentati | [facility] | Aayush Burr MD | Other (June | | 2017 | on Only | Nephrology [address] | [facility] Provider | | | | [place] [facility] | [address] [place], [place] | [facility] | | | | [place], [place] | [address] | Note) | | | | [address] | | | | | | [phone] | | | +--------+ + + + [...]
--- OUTSIDE RECORDS SUMMARY | ~2017-08-26 | XMS | Encounter Summary ---
Demographics + + + | Address | [address] | | | [place] [address] | + + + | Home Phone | | + + + | Preferred Language | Unknown | + + + | Marital Status | Single | + + + | Druze Affiliation | NRP | + + + | Race | White | + + + | Ethnic Group | Not or | + + + Author + + + | Author | [facility] | + + + | Organization | [facility] | + + + | Address | Unknown | + + + | Phone | Unavailable | + + + Support + + + + + | Name | Relationship | Address | Phone | + + + + + | Bharti Moses | ECON | [address] | | | | | [place] [address] | | + + + + + | Florentin Vega | ECON | Unknown | | + + + + + Care Team Providers + +------+ + | Care Community Services Coordinator Name | Role | Phone | + +------+ + | Wilber Mcgee DO | PCP | | + +------+ + Encounter Details +--------+ + + + + | Date | Type | Department | Care Team | Description | +--------+ + + + + | 08/07/ | Procedure | [facility] [address] | | | [address] | [address] | [address] | | | | | | [address] [facility] | | | | | | [place], [place] | | | | | | [address] | | | | | | [phone] | | | +--------+ + + + [...]
--- OUTSIDE RECORDS SUMMARY | ~2017-08-26 | XMS | Encounter Summary ---
Demographics + + + | Address | [address] | | | [place] [address] | + + + | Home Phone | | + + + | Preferred Language | Unknown | + + + | Marital Status | Single | + + + | Restorationism Affiliation | NRP | + + + | Race | White | + + + | Ethnic Group | Not or | + + + Author + + + | Author | [facility] | + + + | Organization | [facility] | + + + | Address | Unknown | + + + | Phone | Unavailable | + + + Support + + + + + | Name | Relationship | Address | Phone | + + + + + | Bharti Moses | ECON | [address] | | | | | [place] [address] | | + + + + + | Florentin Vega | ECON | Unknown | | + + + + + Care Team Providers + +------+ + | Care Machine Operator Helper Name | Role | Phone | + [...] | | | | | OCCUPATIONAL | [place], [place] | | | | | | THERAPY | [address] | | | | | | REFERRAL | Phone: | | | | | | | [phone] | | | | | | | Fax: | | | | | | | [phone] | | + +--------+ + + + [...] | | | | | THERAPY | [place], [place] | | | | | | REFERRAL | [address] | | | | | | | Phone: | | | | | | | [phone] | | | | | | | Fax: | | | | | | | [phone] | | + +--------+ + + + [...] + + | 08/07/ | Hospital | [facility] 14C [address] | Tracey Ledesma MD | | | 2018 - | Encounter | [facility] | [address] [facility] | | | | | 14C [facility] | [facility] | | | 08/11/ | | [place], [place] | [place] | | | 2017 | | [address] | [address] | | | | | [phone] | [phone] | | | | | | | | | | | | Paulo Trotter MD | | | | | | [address] | | | | | | [place], [place] | | | | | | [address] | | | | | | [phone] | | | | | | | | | | | | Manuela Hester, | | | | | | [address] | | | | | | [facility] | | | | | | [place], [place] | | | | | | [address] | | | | | | [phone] | | | | | | | [...] may be different fro m the original. [facility] Discharge Summary Discharging Provider: AMIRAH SANCHEZ MD [...] known ventriculomegaly and he was sent to [facility] and admitted to neurosurgery service. Repeat brain MRI here showed a stable degree of ventriculomegaly. H is blood pressure medications had been held in the setting of vomiting and his BP at OSH was noted to be 234/104, however on arrival was down to 180s/90s. An EEG was obtained on 08/08 w [facility] showed slowing of background and triphasic [...] for ESRD. - continue HD MWF at [facility] with Dr. Aayush Kauffman - continue sevelamer # HTN Suspect [...] 08/01/[address] Martinez. Recommend follow-up with [facility] Hem atology for continued observation. Pertinent Findings: [...] Thank you for entrusting your care to [facility] Internal Medicine. If you have any problems or concerns before you are able to follow up with your Primary Care Provider, please call and ask the coal tower operator to page the attending physician, Leonidas Redd MD, who was caring for you at discharge. If that physician is not available, ask the coal tower operator to page the physician financial operations analyst for the Medical Teaching Service. Discharge Destination - Selection Complete Service Request Status Selected Specialties Address Phone Number [facility]ax Number [facility] Facility [address], [place] [address] [phone] Home Care Medical No service has been selected for the patient. Social Care Services No service has been selected for the patient. Follow Up: Future Appointments Department Dept Phone Center 08/07/2017 3:01 AM [facility] 14C [phone] Contact information for other follow-up providers WILBER MCGEE DO In 1 week. Specialty: Family Medicine Contact information [address] [place] [address] Contact information for after-discharge care [facility] Specialty: [facility] Care Facility Contact information [address] [place] [address] Discharge Physical Exam: BP Readings from Last [...] Andry stable for discharge. Leonidas Redd MD Transit Department Clerklacing presser [facility] in this encounter Medications at Time of [...] Leonidas Redd MD - 08/11/2017 2:18 PM [facility] ATTENDING PROGRESS NOTE ADMIT DATE: 08/07/2017 [...] to his facility today. Leonidas Redd MD Transit Department Clerklacing presser [facility] Leonidas Redd MD - 08/10/2017 12:23 PM [...] from the hospital to return to his fci today. The only medication changes we will recommend are holding the torsemide (as he is anuric). Consideration could be made to discontinuing alfuzosin and linzess on an out patient basis, as well. Leonidas Redd MD Transit Department Clerklacing presser [facility] - 08/10/2017 8:18 AM PDTFormatting of [...] dialysis scheduled for today. Will stick to [facility] schedule. -continue Sevelamer, will titrate up [...] #MGUS -Recommend patient follow up with outpatient developer trading systems for management #normocytic anemia Chronic and stable, [...] Please see prior note for details. Called [phone] pager and placed on [employer] expected Manuela Hester MD - 08/07/2017 1:49 [...] alcohol abuse Recommend to stop any unnecessary CAR PICK UP DRIVER altering medications. Also at risk for etoh [...] Joni Sanon about potential consult request to [facility] regarding Mr. Vega (at the sancho e of this documentation, I have not seen the patient). 66 yo M with PMH of ESRD, HTN, congenital ventriculomegaly, seizure d/o, who developed AMS, found to have hydrocephalus admitted on NSG. Per Dr. Sanon, [facility] would like to have consultants for w/up of AMS and mngt of ESRD. Their i nitial plan is to consult neurology for AMS and [facility] for ESRD mngt. -> I explained that for ESRD, nephrology should be consulted ([facility] does not manage dialysis ). -> I also asked what [facility] can add to the mngt and w/up of AMS given that they have plan to consult neurology -> Dr. Sanon did not answer any specific consult question besides "for medical management" -> then Dr. aSnon asked me to talk with NSG attending to clarify if [facility] needs to be involv ed I called NSG attending Dr. Paulo Trotter to confirm the consult question. Per Dr. Trotter, he was hoping to have assistance for only ESRD from [facility]. I explained that we don't manage ESRD and that NSG needs to consult nephrology. I also asked him if he would like us to be involv ed in Mr. Vega's care for any other problems, but Dr. Trotter told me that he does not nee d any assistance from [facility] at this moment. I told him that [facility] would be happy to be consulted at any time if any problem arises during the course of pt's hospital stay. If any new problem or question arises and you need assistance from our [facility] service, please feel free to contact us on pager [phone]. I updated NSG resident Dr. Sanon about [...] | + + + | Blood | [facility], CORE [address] [place] [address] | | | [place] [address] | + + + CBC ONLY (08/10/2017 7:06 AM) + + + | Specimen | Performing Laboratory | + + + | Blood | | + + + + + | Narrative | + + | The following orders were created for panel order CBC ONLY. | | Procedure | | Abnormality Status | | --------- | | ------ CBC (HEMOGRAM) | | ONLY[[id number]] Abnormal Final | | result Please view [...] | + + + | Blood | [facility], [facility] [address] [facility] [facility] | | | [place] [address] | + + + + + | [...] | + + + | Blood | [facility] [address] [place], [place] | | | [address] | + + + TSH (08/10/2017 7:06 AM) + +-------+ + | Component | Value | Ref Range | + +-------+ + | TSH | 1.35 | 0.46 - 5.56 mIU/L | + +-------+ + + + + | Specimen | Performing Laboratory | + + + | Blood | [facility], CORE [address] [facility] | | | [place] [address] | + + + + + | [...] + + | Blood - Antecubital | [facility], CORE [address] | | - left | [place] [address] | + + + LAB OTHER (08/09/2017 [...] REFERRAL LAB NAME | Test performed by [address] | | | | [place], [place] | | | | [address] | | | | [email or web address] | | | | [employer] | | | | | | | [...] ------ CULTURE, BLOOD | | BACTI & Y...[[id number]] Final | | result Please view results [...] | Blood - Arm - left | [facility], CORE [address] [facility] | | | [place] [address] | + + + CULTURE, BLOOD BACTI [...] ------ CULTURE, BLOOD | | BACTI & Y...[[id number]] Final | | result Please view results [...] | + + + | Blood | [facility], CORE [address] [place] [address] | | | [place] [address] | + + + MAGNESIUM, PLASMA (08/09/2017 7:00 AM) + +-------+ + | Component | Value | Ref Range | + +-------+ + | MAGNESIUM,PLASMA | 2.4 | 1.6 - 2.6 mg/dL | + +-------+ + + + + | Specimen | Performing Laboratory | + + + | Blood | [facility], CORE [address] [facility] | | | [place], [place] [address] | + + + + + | [...] | + + + | Blood | [facility], CORE [address] | | | [place] [address] | + + + + + | [...] : 1950 Medical Record | | Number: [id number] Date of Test: 08/08/2017 Place of Service: [facility] [phone] - | | [id number] [facility] Department: EEG [facility] [id number] PLANS EXAMINER VIDEO EEG Start | | Date/Time: 08/07/2017 [...] normal sinus rhythm. 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: 1) Frequent [...] | | Signed: 08/08/2017 Tanika Isbell MD Transit Department Clerk, Neurology/Epilepsy | | Billing/Coding: | | Provider: Tanika Isbell MD Date: 08/07/17 Suggested Modifier: GC - Resident Present | | Suggested CPT: 95604 - EEG Extended (1 - 6 hours) [...] | + + + | Blood | [facility], CORE [address] [facility] | | | [place] [address] | + + + + + | [...] Note | + + | Service Account, [employer] In Interface - 08/08/2017 8:34 AM PDT [...] Note | + + | Service Account, ExpenseBot Res In Interface - 08/08/2017 8:34 AM [...] | + + + | Blood | [facility], CORE [address] | | | [place] [address] | + + + HEPATITIS B SURFACE [...] | + + + | Blood | [facility], CORE [address] | | | [place] [address] | + + + EEG ROUTINE (08/07/2017 12:49 PM) + + | Narrative | + + | Patient Name: Andry Vega Date of : 1950 Medical Record | | Number: [id number] Date of Test: 08/07/2017 Place of Service: [facility] [phone] - | | [id number] [facility] Department: EEG [facility] - [id number] ROUTINE EEG Indications: Evaluate | | for [...] to the | | consult neurology service. [facility] EEG to follow. Bernabe Jackson DO Epilepsy | | Fellow [facility] NEUROLOGY ATTENDING ATTESTATION I | | independently reviewed the EEG record, edited the report as necessary, and agree with | | the fellow's interpretation as documented. Date of Service: 08/07/2017 Tanika Fox | | MD [facility] Transit Department Clerk, Neurology/Epilepsy | | Billing/Coding: | | Provider: Tanika Isbell MD Date: 08/07/17 Suggested Modifier: GC - Resident Present | | Suggested CPT: 16721 - EEG Asleep Only Suggested Dx: G93.49 [...] | + + + | Blood | [facility] [address] [place], [place] | | | [address] | + + + X-RAY PORTABLE CHEST 1 VIEW (08/07/2017 4:44 AM) + + + | Specimen | Performing Laboratory | + + + | | [facility] VOICE RECOGNITION | + + + + + | Narrative | + + | STUDY: [place] CHEST 1 VIEW HISTORY: Altered mental status [...] Interface - 08/07/2017 8:04 AM PDT STUDY: [place] CHEST 1 | | VIEWHISTORY: Altered mental [...] | + + + | | [facility] [address] | | | [place] [address] | + + + ED NIRAV GAMA [...] [address] | | | [place] [address] | + + + RAINBOW HOLD TUBE - RED TOP (08/07/2017 3:47 AM) + + + | Specimen | Performing Laboratory | + + + | Blood | [facility], CORE [address] [place] [address] | | | [place] [address] | + + + RAINBOW HOLD TUBE - PURPLE TOP (08/07/2017 3:47 AM) + + + | Specimen | Performing Laboratory | + + + | Blood | [facility], CORE [address] | | | [place] [address] | + + + RAINBOW HOLD TUBE - GREEN TOP (08/07/2017 3:47 AM) + + + | Specimen | Performing Laboratory | + + + | Blood | [facility], CORE [address] | | | [place] [address] | + + + RAINBOW HOLD TUBE - BLUE TOP (08/07/2017 3:47 AM) + + + | Specimen | Performing Laboratory | + + + | Blood | [facility], CORE [address] | | | [place] [address] | + + + BLOOD BANK HOLD [...] | + + + | Blood | [facility], [facility] [address] [facility] | | | [place] [address] | + + + LEW CARMEN (08/07/2017 [...] ------ RAINBOW HOLD | | TUBE - BLUE...[[id number]] Final | | result RAINBOW HOLD TUBE - | | GREE...[[id number]] Final | | result RAINBOW HOLD TUBE - | | PURP...[[id number]] Final | | result RAINBOW HOLD TUBE - RED | | TOP[[id number]] Final | | result Please view results [...] | + + + | Blood | [facility], [facility] [address] [facility] | | | [place] [address] | + + + + + | [...] | + + + | Blood | [facility], CORE [address] [place] [address] | | | [place] [address] | + + + + + | [...] | + + + | Blood | [facility], CORE [address] [place] [address] | | | [place] [address] | + + + COMPLETE METABOLIC SET [...] 5 (L) | >60 mL/min | | BELIZEAN | | | + + + + | EGFR NON | 4 (L) | >60 mL/min | | -BELIZEAN [...] | + + + | Blood | [facility], CORE [address] | | | [place] [address] | + + + + + | [...] | ------ CBC AND AUTO | | DIFF[[id number]] Abnormal Final | | result Please view [...] | | | | | dose on [facility] 08/10/17 at 0900, | | PDT [...] | | | | First dose on [facility] 08/10/17 at | | PDT | [...] | | | | | dose on [facility] 08/10/17 at 0900, | | PDT | | | | | Until Discontinued | | | | | | + +-------+ +-------+---+---+ +---+---+ | | | +---+---+ in this encounter
--- OUTSIDE RECORDS SUMMARY | ~2017-08-26 | XMS | Encounter Summary ---
Demographics + + + | Address | [address] | | | [place] [address] | + + + | Home Phone | | + + + | Preferred Language | Unknown | + + + | Marital Status | Single | + + + | Congregational Affiliation | NRP | + + + | Race | White | + + + | Ethnic Group | Not or | + + + Author + + + | Author | [facility] | + + + | Organization | [facility] | + + + | Address | Unknown | + + + | Phone | Unavailable | + + + Support + + + + + | Name | Relationship | Address | Phone | + + + + + | Bharti Moses | ECON | [address] | | | | | [place] [address] | | + + + + + | Florentin Vega | ECON | Unknown | | + + + + + Care Team Providers + +------+ + | Care Crane Manager Name | Role | Phone | [...] Edward | | | | | | [facility] | | | | | | [place], [place] | | | | | | [address] | | | +--------+ + + + [...]
--- OUTSIDE RECORDS SUMMARY | ~2017-08-26 | XMS | Encounter Summary ---
Demographics + + + | Address | [address] | | | [place] [address] | + + + | Home Phone | | + + + | Preferred Language | Unknown | + + + | Marital Status | Single | + + + | Zoroastrianism Affiliation | 1027 | + + + | Race | Unknown | + + + | Ethnic Group | Unknown | + + + Author + + + | Author | [facility] | + + + | Organization | [facility] | + + + | Address | Unknown | + + + | Phone | Unavailable | + + + Support + + +---------+ + | Name | Relationship | Address | Phone | + + +---------+ + | Bharti Moses | ECON | Unknown | | + + +---------+ + Care Team Providers + +------+ + | Care Polisher Hand Name | Role | Phone | + [...] + + | 06/28/ | Documentati | [facility] | Aayush Burr MD | Other (May | | 2017 | on Only | Nephrology [address] | 2018-Thomasita Provider | | | | [facility] A | [address] [place], [place] | [facility] | | | | [place], [place] | [address] | Note) | | | | [address] | | | | | | [phone] | | | +--------+ + + + [...]
--- OUTSIDE RECORDS SUMMARY | ~2017-08-26 | XMS | Encounter Summary ---
Demographics + + + | Address | [address] | | | [place] [address] | + + + | Home Phone | | + + + | Preferred Language | Unknown | + + + | Marital Status | Single | + + + | Oriental Orthodox Affiliation | 1027 | + + + | Race | Unknown | + + + | Ethnic Group | Unknown | + + + Author + + + | Author | [facility] | + + + | Organization | [facility] | + + + | Address | Unknown | + + + | Phone | Unavailable | + + + Support + + +---------+ + | Name | Relationship | Address | Phone | + + +---------+ + | Bharti Moses | ECON | Unknown | | + + +---------+ + Care Team Providers + +------+ + | Care Sewing Machine Tester Name | Role | Phone | + [...] + + | 05/29/ | Documentati | [facility] | Aayush Burr MD | Other (April | | 2017 | on Only | Nephrology [address] | [address] | [facility] | | | | [facility] A | [address] [place], [place] | [facility] | | | | [place], [place] | [address] | Note) | | | | [address] | | | | | | [phone] | | | +--------+ + + + [...]
--- OUTSIDE RECORDS SUMMARY | ~2017-08-26 | XMS | Encounter Summary ---
Demographics + + + | Address | [address] | | | [place] [address] | + + + | Home Phone | | + + + | Preferred Language | Unknown | + + + | Marital Status | Single | + + + | Samaritan Affiliation | 1027 | + + + | Race | Unknown | + + + | Ethnic Group | Unknown | + + + Author + + + | Author | [facility] | + + + | Organization | [facility] | + + + | Address | Unknown | + + + | Phone | Unavailable | + + + Support + + +---------+ + | Name | Relationship | Address | Phone | + + +---------+ + | Bharti Moses | ECON | Unknown | | + + +---------+ + Care Team Providers + +------+ + | Care Email Marketing Specialist Name | Role | Phone | + +------+ + | Wilber Mcgee DO | PCP | | + +------+ + Reason for Visit +--------+ + | Reason | Comments | +--------+ + | Other | CT HEAD/ XR CHEST, [facility] | +--------+ + Encounter Details +--------+ + + + + | Date | Type | Department | Care Team | Description | +--------+ + + + + | 08/06/ | Documentati | [facility] | Warren Matos MD | Other (CT HEAD/ XR | | 2018 | on Only | Hematology and | [address] | CHEST, DR. [address], | | | | Oncology [address] | [place], [place] | [address] ) | | | | [address] | [address] | | | | | [place], [place] | | | | | | [address] | | | | | | [phone] | | | +--------+ + + + [...]
--- OUTSIDE RECORDS SUMMARY | ~2017-08-26 | XMS | Encounter Summary ---
Demographics + + + | Address | [address] | | | [place] [address] | + + + | Home Phone | | + + + | Preferred Language | Unknown | + + + | Marital Status | Single | + + + | Alevism Affiliation | 1027 | + + + | Race | Unknown | + + + | Ethnic Group | Unknown | + + + Author + + + | Author | [facility] | + + + | Organization | [facility] | + + + | Address | Unknown | + + + | Phone | Unavailable | + + + Support + + +---------+ + | Name | Relationship | Address | Phone | + + +---------+ + | Bharti Moses | ECON | Unknown | | + + +---------+ + Care Team Providers + +------+ + | Care Pickling Tank Operator Name | Role | Phone | + [...] + + | 08/06/ | Documentati | [facility] | Warren Matos MD | Other (CT HEAD/ XR | | 2018 | on Only | Hematology and | [address] | CHEST, DR. [address], | | | | Oncology [address] | [place], [place] | [facility] ) | | | | [address] | [address] | | | | | [place], [place] | | | | | | [address] | | | | | | [phone] | | | +--------+ + + + [...]
--- OUTSIDE RECORDS SUMMARY | ~2017-08-26 | XMS | Encounter Summary ---
Demographics + + + | Address | [address] | | | [place] [address] | + + + | Home Phone | | + + + | Preferred Language | Unknown | + + + | Marital Status | Single | + + + | Presybeterian Affiliation | NRP | + + + [...] | | | | | [place] [address] | | + + + + + | Florentin Vega | ECON | Unknown | | + + + + + Care Team Providers + +------+ + | Care Juice Mixer Name | Role | Phone | + [...] Edward | | | | | | [facility] | | | | | | [place], [place] | | | | | | [address] | | | +--------+ + + + [...]
--- OUTSIDE RECORDS SUMMARY | ~2017-08-26 | XMS | Encounter Summary ---
Demographics + + + | Address | [address] | | | [place] [address] | + + + | Home Phone | | + + + | Preferred Language | Unknown | + + + | Marital Status | Single | + + + | Hoahaoism Affiliation | 1027 | + + + | Race | Unknown | + + + | Ethnic Group | Unknown | + + + Author + + + | Author | [facility] | + + + | Organization | [facility] | + + + | Address | Unknown | + + + | Phone | Unavailable | + + + Support + + +---------+ + | Name | Relationship | Address | Phone | + + +---------+ + | Bharti Moses | ECON | Unknown | | + + +---------+ + Care Team Providers + +------+ + | Care Weight Recorder Name | Role | Phone | + [...] + + | 07/25/ | Documentati | [facility] | Warren Matos MD | Other (DR. [address]LO | | 2018 | on Only | Hematology and | [address] | [place] ) | | | | Oncology [address] | [place] | | | | | [address] | [address] | | | | | [place] | | | | | | [address] | | | | | | [phone] | | | +--------+ + + + [...]
--- OUTSIDE RECORDS SUMMARY | ~2017-08-26 | XMS | Encounter Summary ---
Demographics + + + | Address | [address] | | | [place] [address] | + + + | Home Phone | | + + + | Preferred Language | Unknown | + + + | Marital Status | Single | + + + | Sabianism Affiliation | 1027 | + + + | Race | Unknown | + + + | Ethnic Group | Unknown | + + + Author + + + | Author | [facility] | + + + | Organization | [facility] | + + + | Address | Unknown | + + + | Phone | Unavailable | + + + Support + + +---------+ + | Name | Relationship | Address | Phone | + + +---------+ + | Bharti Moses | ECON | Unknown | | + + +---------+ + Care Team Providers + +------+ + | Care Contact Center Specialist Name | Role | Phone | [...] + + | 06/28/ | Documentati | [facility] | Aayush Burr MD | Other (May | | 2017 | on Only | Nephrology [address] | 2018-Thomasita Provider | | | | [facility] | [address] [place], [place] | [facility] | | | | [place], [place] | [address] | Note) | | | | [address] | | | | | | [phone] | | | +--------+ + + + [...]
--- OUTSIDE RECORDS SUMMARY | ~2017-08-26 | XMS | Encounter Summary ---
Demographics + + + | Address | [address] | | | [place] [address] | + + + | Home Phone [...] Author + + + | Author | [facility] | + + + | Organization | [facility] | + + + | Address | Unknown | + + + | Phone | Unavailable | + + + Support + + + + + | Name | Relationship | Address | Phone | + + + + + | Bharti Moses | ECON | [address] | | | | | [place] [address] | | + + + + + | Florentin Vega | ECON | Unknown | | + + + + + Care Team Providers + +------+ + | Care Farm Crew Leader Name | Role | Phone | + +------+ + | Wilber Mcgee DO | PCP | | + +------+ + Encounter Details +--------+ + + + + | Date | Type | Department | Care Team | Description | +--------+ + + + + | 08/07/ | Procedure | [facility] [address] | | | [address] | [address] | [address] | | | | | | [address] [facility] | | | | | | [place], [place] | | | | | | [address] | | | | | | [phone] | | | +--------+ + + + [...]
--- OUTSIDE RECORDS SUMMARY | ~2017-08-26 | XMS | Encounter Summary ---
Demographics + + + | Address | [address] | | | [place] [address] | + + + | Home Phone | | + + + | Preferred Language | Unknown | + + + | Marital Status | Single | + + + | Pentecostal Affiliation | 1027 | + + + | Race | Unknown | + + + | Ethnic Group | Unknown | + + + Author + + + | Author | [facility] | + + + | Organization | [facility] | + + + | Address | Unknown | + + + | Phone | Unavailable | + + + Support + + +---------+ + | Name | Relationship | Address | Phone | + + +---------+ + | Bharti Moses | ECON | Unknown | | + + +---------+ + Care Team Providers + +------+ + | Care Child And Family Counselor Name | Role | Phone | + [...] + + | 08/22/ | Documentati | [facility] | Aayush Burr MD | Other (July | | 2017 | on Only | Nephrology [address] | [facility] | | | | [place] [address] | [address] [place], [place] | [facility] | | | | [place], [place] | [address] | Note) | | | | [address] | | | | | | [phone] | | | +--------+ + + + [...]
--- NOTE | 2017-08-27 13:30 | EKG ---
[facility] [address] [place] [address] Signed Normal sinus rhythm Moderate voltage criteria for LVH, may be normal variant Borderline ECG When compared with ECG of 06-AUG-2017 22:08, No significant change was found Confirmed by JASMINE AMEZQUITA MD ([id number]) on 08/27/2017 1:30:39 PM Electronically Signed By: JASMINE AMEZQUITA MD 08/27/17 1330 PATIENT NAME: MEERA VIZCAINO Electrocardiogram DATE OF : 48 PHYSICIAN: JASMINE AMEZQUITA MD REPORT #: [id number] REPORT IS CONFIDENTIAL AND NOT TO BE RELEASED WITHOUT AUTHORIZATION
== END 2017-08-26 17:30 | disposition home or self-care (01) ==
LOC: ED 15:17
PROC: 0HQ1XZZ Repair Face Skin, External Approach (ICD-10-PCS; principal; 2017-08-26)
DX: S01.111A Laceration without foreign body of right eyelid and periocular area, initial encounter (principal); G91.9 Hydrocephalus, unspecified; I12.0 Hypertensive chronic kidney disease with stage 5 chronic kidney disease or end stage renal disease; N18.6 End stage renal disease; Z99.2 Dependence on renal dialysis; Z79.899 Other long term (current) drug therapy; W18.30XA Fall on same level, unspecified, initial encounter
CPT/HCPCS: 12011; 70450; 71045; 80053; 84484; 85025; 93005; 93010; 99284; J7040